=== PATIENT | female | born 2000 | race Caucasian/White ===

== ENCOUNTER 2022-04-10 15:37 | Outpatient (CLI) | payer BC, SELFPAY ==
[2022-04-10 18:29] LABS: Hepatitis B Surface Antigen* Negative (Negative)
[2022-04-10 18:38] LABS: HIV 1/2/P24 Combo Screen* Negative (Negative)
[2022-04-10 18:47] LABS: Hepatitis C Virus Antibody* Negative (Negative)
[2022-04-12 18:50] LABS: Rapid Plasma Reagin (RPR) Non Reactive (Non Reactive)
[2022-04-12 23:35] LABS: Rubella Antibody IgG 45.2 IU/mL
== END 2022-04-10 15:38 | disposition home or self-care (01) ==
LOC: NFLDREF 15:39
PROVIDERS: Visit Provider Physician Assistant
DX: Z34.91 Encounter for supervision of normal pregnancy, unspecified, first trimester (principal); Z3A.08 8 weeks gestation of pregnancy
CPT/HCPCS: 76817; 86592; 86703; 86762; 86787; 86803; 86850; 86900; 86901; 87086; 87340; 87491; 87591

== ENCOUNTER 2022-04-30 12:45 | Outpatient (CLI) | payer BC, SELFPAY ==
--- NOTE | 2022-04-30 13:00 | CRLHL7_ITS ---
For Patients: As a result of the Century Cures Act, medical imaging exams and procedure reports are released immediately into your electronic medical record. You may view this report before your referring provider. If you have questions, please contact your health care provider. CLINICAL HISTORY: First trimester screening. TECHNIQUE: Real time loza scale imaging of the fetus was performed using a transabdominal approach. FINDINGS: Sonographic imaging demonstrates a single living intrauterine gestation. The fetus demonstrates a regular cardiac rate measuring 173 beats per minute. The crown rump length measurement of 5.3 cm corresponds to a gestation of 12 weeks 0 days which is concordant with the earlier dating ultrasound. A nuchal translucency measurement of 1.5 mm was obtained for screening purposes. IMPRESSION: Nuchal translucency measurement obtained for first trimester screen. Dictated by Manuel Du MD @ 05/01/2022 9:40:02 AM (Electronically Signed)
== END 2022-04-30 12:46 | disposition home or self-care (01) ==
LOC: US 12:45
PROVIDERS: Visit Provider Physician Assistant
DX: Z34.91 Encounter for supervision of normal pregnancy, unspecified, first trimester (principal)
CPT/HCPCS: 36415; 76801; 76813; 84163; 84702

== ENCOUNTER 2022-06-25 11:00 | Outpatient (CLI) | payer BC, SELFPAY ==
--- NOTE | 2022-06-25 11:00 | CRLHL7_ITS ---
For Patients: As a result of the Century Cures Act, medical imaging exams and procedure reports are released immediately into your electronic medical record. You may view this report before your referring provider. If you have questions, please contact your health care provider. INDICATION: Evaluate anatomy. COMPARISON: 04/10/2022. TECHNIQUE: Real time loza scale imaging of the fetus was performed. FINDINGS: Sonographic imaging demonstrates a single living intrauterine gestation. Fetus demonstrates a regular cardiac rate of 148 beats per minute. Fetus has a breech orientation and longitudinal lie. The placenta lies posteriorly without evidence of placenta previa. Amniotic fluid volume appears normal. Single deepest vertical pocket: 3.6 cm. The cervix is closed and measures 4.9 cm in length. The composite ultrasound gestational age is calculated at 20 weeks 2 days with an estimated sonographic due date of November 10, 2022. The estimated weight is 338 grams which lies at the 66th percentile. The following biometric measurements were obtained: Biparietal diameter: 4.4 cm/19 weeks 3 days 31% Head circumference: 17.7 cm/20 weeks 1 day 56% Abdominal circumference: 15.3 cm/20 weeks 3 days 65% Femur length: 3.2 cm/20 weeks 0 days 47% The HC/AC ratio measures: 1.16 range (1.07-1.25) On anatomic survey, there is a normal appearance of the cerebral ventricles, cisterna magna and cerebellum. The nose, lips, and facial profile appear normal. The cervical, thoracic and lumbar spine are well visualized and appear normal. There is a normal four-chamber heart view and the left and right ventricular outflow tracts appear normal. diaphragm, stomach, kidneys and bladder appear normal. There is a normal three-vessel cord and cord insertion site. The four extremities appear normal. Appropriate growth and maturation when compared to April 10, 2022. IMPRESSION: Normal OB ultrasound exam with concordance of clinical and sonographic dating. No intrinsic abnormalities noted on anatomic survey. Dictated by Adriel Mckeon MD @ 06/25/2022 3:51:42 PM (Electronically Signed)
== END 2022-06-25 11:01 | disposition home or self-care (01) ==
PROVIDERS: Visit Provider Advanced Practice Midwife
DX: Z34.92 Encounter for supervision of normal pregnancy, unspecified, second trimester (principal); Z3A.19 19 weeks gestation of pregnancy
CPT/HCPCS: 76805

== ENCOUNTER 2022-08-04 16:39 | Outpatient (CLI) | payer BC, SELFPAY ==
[2022-08-04 16:48] VITALS: PULSE 92; O2SAT 100
[2022-08-04 16:53] VITALS: PULSE 97; O2SAT 97
[2022-08-04 16:58] VITALS: BP 128/87; PULSE 93; RESP 16; TEMP 36.9; O2SAT 100
--- NOTE | 2022-08-04 18:13 | PC.OBNST ---
NST Note NST Note Start: 08/04/22 16:46 Freq: ONCE Status: Discharge Protocol: Document 08/04/22 17:27 CUDDYH (Rec: 08/04/22 17:33 CUDDY [id number]) NST Note 1 Para (# of births) 0 EDC 11/13/22 Gestational Age In Weeks & Days 25 Weeks & 4 Days Patient Presented with Complaint(s) of Decreased movement Reactive Yes Appropriate for Gestational Age Yes RN Cesia Alvarado RN Date 08/04/22 Reactive Yes Appropriate for Gestational Age Yes RN Yury Mora RN Date 08/04/22 OB NST charge Yes Complete NST Note via Write Note Yes The provider's electronic signature indicates the NST is reactive/appropriate for gestational age. *Note to provider: If an addendum is required, open the patient's chart and click on the note under the Nurse/Allied Health tab.
== END 2022-08-04 17:27 | disposition home or self-care (01) ==
LOC: OB OUT 16:40 → OB 16:44
PROVIDERS: Visit Provider Advanced Practice Midwife
DX: O36.8120 Decreased fetal movements, second trimester, not applicable or unspecified (principal); Z3A.25 25 weeks gestation of pregnancy
CPT/HCPCS: 59025; 99213

== ENCOUNTER 2022-08-20 13:29 | Outpatient (CLI) | payer BC, SELFPAY ==
[2022-08-23 00:54] LABS: Rapid Plasma Reagin (RPR) Non Reactive (Non Reactive)
== END 2022-08-20 13:30 | disposition home or self-care (01) ==
PROVIDERS: Visit Provider Advanced Practice Midwife
DX: Z34.90 Encounter for supervision of normal pregnancy, unspecified, unspecified trimester (principal)
CPT/HCPCS: 86592

== ENCOUNTER 2022-09-17 12:50 | Outpatient (CLI) | payer OTHER, SELFPAY ==
--- NOTE | 2022-09-17 13:00 | CRLHL7_ITS ---
For Patients: As a result of the Century Cures Act, medical imaging exams and procedure reports are released immediately into your electronic medical record. You may view this report before your referring provider. If you have questions, please contact your health care provider. INDICATION: COVID IN COMPARISON: 06/25/2022 TECHNIQUE: Real time loza scale imaging of the fetus was performed as well as color Doppler and spectral Doppler analysis of the umbilical artery. FINDINGS: Sonographic imaging demonstrates a single living intrauterine gestation. Fetus demonstrates a regular cardiac rate of 141 beats per minute. Fetus has a vertex position. The placenta lies posteriorly. Amniotic fluid volume appears normal and there is a single deepest vertical pocket: 4.2 cm. The estimated weight is 1895gm which lies at the 45th %. On the prior OB ultrasound exam dated 06/25/2022 the estimated weight was at the 66th%. BPD 62nd percentile. HC 83rd percentile. HC 44th percentile. FL 32nd percentile. The HC/AC ratio measures 1.12 range (0.96-1.12). IMPRESSION: Sonographic gestational age 32 weeks 5 days and sonographic due date 11/07/2022. Sonographic age is 6 days ahead of the clinical age. Estimated weight 45th percentile. Abdominal circumference 44th percentile. Dictated by Manuel Du MD @ 09/18/2022 10:35:26 AM (Electronically Signed)
== END 2022-09-17 12:51 | disposition home or self-care (01) ==
LOC: US 12:54
PROVIDERS: Visit Provider Advanced Practice Midwife
DX: O98.513 Other viral diseases complicating pregnancy, third trimester (principal); U07.1 COVID-19; Z3A.32 32 weeks gestation of pregnancy
CPT/HCPCS: 76816

== ENCOUNTER 2022-10-15 13:16 | Outpatient (CLI) | payer OTHER, SELFPAY ==
--- NOTE | 2022-10-15 13:00 | CRLHL7_ITS ---
For Patients: As a result of the 21st Century Cures Act, medical imaging exams and procedure reports are released immediately into your electronic medical record. You may view this report before your referring provider. If you have questions, please contact your health care provider. INDICATION: Third trimester scan, evaluate growth. COVID-19 viral infection in . COMPARISON: September 17, 2022. TECHNIQUE: Real time loza scale imaging of the fetus was performed transabdominally. FINDINGS: Sonographic imaging demonstrates a single living intrauterine gestation. Fetus demonstrates a regular cardiac rate of 146 beats per minute. Fetus has a vertex orientation and longitudinal lie. The placenta lies posteriorly without evidence of placenta previa. Amniotic fluid volume appears normal with a single deepest vertical pocket measurement of 6.4 cm. The composite ultrasound gestational age is calculated at 36 weeks 5 days. The estimated weight is 3022 which lies at the 75th percentile. The biometric indices all lie within normal range. The HC/AC ratio measures 1.0 range (0.92-1.06). The FL/AC ratio measures 20.93 (20.0-24.0). Biometric indices are as follows: Biparietal diameter 9.0 cm, 36 weeks 2 days, 69th percentile. Head circumference 33.2 cm, 37 weeks 6 days, 68th percentile. Abdominal circumference 33.2 cm, 37 weeks 1 day, 89th percentile. Femur length 7.0 cm, 35 weeks 5 days, 40th percentile. The estimated due date is November 07, 2022. IMPRESSION: Single living intrauterine in vertex presentation. Composite calculated ultrasound age 36 weeks 5 days. Estimated weight lies at the 75th percentile. Appropriate growth and maturation in the interval. Dictated by Adriel Mckeon MD @ 10/15/2022 3:48:30 PM (Electronically Signed)
== END 2022-10-15 13:17 | disposition home or self-care (01) ==
LOC: US 13:17
PROVIDERS: Visit Provider Advanced Practice Midwife
DX: O98.513 Other viral diseases complicating pregnancy, third trimester (principal); U07.1 COVID-19; Z3A.36 36 weeks gestation of pregnancy
CPT/HCPCS: 76816; 87081; 87653

== ENCOUNTER 2022-11-07 20:29 | Inpatient (IN) | payer OTHER, SELFPAY ==
[2022-11-07] VITALS (9 sets, daily range): BP systolic 126–138; BP diastolic 73–99; PULSE 83–109; RESP 16–18; TEMP 36.4–36.6; BMI 37.7
[2022-11-07 20:09] LABS: Amnisure Rom* POSITIVE
--- NOTE | 2022-11-07 21:24 | P.LDBA_ITS ---
Documented by User: Kevin Wheat 11/07/22 22:12 Subjective History of Present Illness Date Seen: 11/07/22 Narrative: Francis Han) is being admitted to Labor and Delivery for SROM this evening at 1830. She has been leaking clear fluid since that time. She is a 22 year old at 39.1 weeks gestation. Her full history and physical was dictated by H&P done 10/22/2022 by CESAR Li Please see this for details. OB Problem list: 1. 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 Asthma Daily steroid inhaler, rare albuterol use 3. Tree nut allergy, carries EpiPen 4. History of depression. Responded well to Lexapro. Doing well off Lexapro since the spring 5. Covid positive s/s 08/13, positive on 08/15, out of quarantine 08/22/21 Growth u/s: Comments: Since admission she has had elevated diastolic blood pressures running in the 90's. OB - Problem Based A/P Additional Plan (1) 39 weeks gestation of : Status: Acute (2) Pain during labor: Status: Acute (3) Elevated blood pressure reading without diagnosis of hypertension: Status: Acute Plan ASSESSMENT:? 22 yo at 39.1 weeks gestation? complicated by:? Labor type: Spontaneous, Early labor? Category 1 FHR pattern.?? Labor complicated by: elevated blood pressures without diagnosis of HTN? GBS negative? ? PLAN:? 1. Routine intrapartum cares as ordered. Continue with expectant management, reevaluate plan if no labor in approximately 12 hours 2. Monitoring per policy, continuous with elevated blood pressures 3. Hourly BP checks. May decrease BP checks to every 4 hours if she has 4 consecutive hours of blood pressures less than 140/90 3. Planning no specific pain management, would like to be reminded of her options as labor progresses. Candidate for analgesia of choice.?? 4. Patient encouraged to reposition and ambulate to promote physiologic labor and and alternate with periods of rest. 5. Anticipate ? Delivery/Labor/Induction Plan Plan: expectant management OB Exam Physical Exam Vital signs: Temp Pulse Resp BP 97.8 F 98 18 138/99 H 11/07/22 20:50 11/07/22 21:06 11/07/22 20:50 11/07/22 21:06 Narrative: Vitals Reviewed Constitutional:? Alert and oriented x3 HEENT:? Normocephalic, atraumatic Neck:? Supple Lungs:? Clear to auscultation bilaterally Heart:? Regular rate and rhythm, no murmur, rub or gallop Abdomen:? Soft, nontender, and gravid. Vertex by Tejas's, confirmed with cervical exam. Extremities:? No edema or erythema Cervix: 2 cm/75%/-2 station/vertex per RN NST: 145 bpm/moderate variability/+accelerations/-decelerations/irregular contractions Detailed Labor and Delivery Exam Patient Gravid: Yes Dilation (cm): 2 Effacement (%): 75 Contraction Frequency: irregular Tachysystole: No Contraction intensity: Mild Fetus (Single) Station: -2 Amniotic Membrane Status: SROM Amniotic Membrane Fluid Description: Clear Heart Rate Baseline: 145 Monitor Accelerations: Present Monitor Decelerations: None Detention Variability: Moderate (6-25) Documented by User: Linda Baker CNM 11/07/22 22:12 Subjective History of Present Illness Narrative: Francis Han) is being admitted to Labor and Delivery for SROM this evening at 1830. She has been leaking clear fluid since that time. She is a 22 year old at 39.1 weeks gestation. Her full history and physical was dictated by H&P done 10/22/2022 by CESAR Li. Please see this for details. OB Problem list: 1. 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 Asthma Daily steroid inhaler, rare albuterol use 3. Tree nut allergy, carries EpiPen 4. History of depression. Responded well to Lexapro. Doing well off Lexapro since the spring 5. Covid positive s/s 08/13, positive on 08/15, out of quarantine 08/22/21 Growth u/s: -32 wk: 45%ile -36 wk: 75% OB - Problem Based A/P Additional Plan (1) 39 weeks gestation of : Status: Acute (2) Pain during labor: Status: Acute (3) Elevated blood pressure reading without diagnosis of hypertension: Status: Acute Plan ASSESSMENT:? 22 yo at 39.1 weeks gestation? complicated by:?Anxiety, Hx of COVID Labor type: Spontaneous, Early labor? Category 1 FHR pattern.?? Labor complicated by: elevated blood pressures without diagnosis of HTN? GBS negative? ? PLAN:? 1. Routine intrapartum cares as ordered. Continue with expectant management, reevaluate plan if no labor in approximately 12 hours 2. Monitoring per policy, continuous with elevated blood pressures 3. Hourly BP checks. May decrease BP checks to every 4 hours if she has 4 consecutive hours of blood pressures less than 140/90 3. Planning no specific pain management, would like to be reminded of her options as labor progresses. Candidate for analgesia of choice.?? 4. Patient encouraged to reposition and ambulate to promote physiologic labor and and alternate with periods of rest. 5. Anticipate ? DEENA Kahn with supervision by Linda Baker CNM
[2022-11-07 21:33] LABS: SARS PCR* Negative SARS-CoV-2 (Negative)
[2022-11-08] VITALS (92 sets, daily range): BP systolic 108–187; BP diastolic 55–92; PULSE 74–125; RESP 16–20; TEMP 36.3–37.1; O2SAT 94–100
[2022-11-08] MEDS: MORPHINE 10 MG/ML inj IM (01:58)
[2022-11-08] MEDS: hydrOXYzine pamoate 25 MG CAPSULE 100 MG PO (01:59)
--- NOTE | 2022-11-08 08:19 | PM.OBPNL ---
Documented by User: Kevin Wheat 11/08/22 08:51 Subjective Date Seen: 11/08/22 Narrative: Jaz is sitting up in bed eating breakfast this morning. Her mother and partner are present as support. She denies regular contractions this morning, continues to leak clear fluid and reports bloody show when up to the bathroom. Overnight her blood pressures have all been lower than 140/90 since initial admission pressures were elevated, see nurse documentation. Objective Exam: Objective:?? Constitutional: Alert and oriented x3, not in distress, coping well? Vital signs stable, see nurse documentation?? Abdomen: gravid, contractions palpate mild with contractions and soft between Edema: +1 edema lower extremities Vital Signs: Last Vital Signs Temp 97.6 F 11/08/22 07:19 Pulse 86 11/08/22 07:19 Resp 16 11/08/22 07:19 BP 135/80 11/08/22 07:19 Contractions Monitor mode: Palpation Contraction Frequency: pt reports every 30 minutes Contraction pattern: Irregular Contraction intensity: Mild Assessment Assessment: early labor Station: -2 Amniotic Membrane Status: SROM Heart Rate Baseline: 145 Monitor Accelerations: Present Monitor Decelerations: None Tracing Comments: intermittant monitoring Plan Plan: ASSESSMENT:? 22yo at 39.2 weeks gestation? complicated by:?Anxiety and Covid during Labor type: Spontaneous, Early labor? Intermittent monitoring ? Labor complicated by: PROM, elevated blood pressures without dx of HTN on admission GBS negative? ? PLAN:? 1. Routine intrapartum cares as ordered. Continue with expectant management? 2. Monitoring per policy, intermittent? 3. Planning low intervention , open to pain management options. Candidate for analgesia of choice.?? 4. Patient encouraged pumping, nipple stimulation,repositioning and ambulation to promote physiologic labor and . 5. Blood pressure monitoring every 4 hours unless elevated > 140/90 then monitor hourly. 6. Anticipate Documented by User: Linda Baker CNM 11/08/22 08:50 Subjective Narrative: Jaz is sitting up in bed eating breakfast this morning. Her mother and partner are present as support. She denies regular contractions this morning, continues to leak clear fluid and reports bloody show when up to the bathroom. Overnight her blood pressures have all been normotensive since initial admission pressures were elevated, see nurse documentation. Plan Plan: ASSESSMENT:? 22yo at 39.2 weeks gestation? complicated by:?Anxiety and Covid during Labor type: Spontaneous, Early labor? Intermittent monitoring ? Labor complicated by: PROM, elevated blood pressures without dx of HTN on admission GBS negative? ? PLAN:? 1. Routine intrapartum cares as ordered. Continue with expectant management, discussed reevaluating around lunch to discuss alternative plan. 2. Monitoring per policy, intermittent? 3. Planning low intervention , open to pain management options. Candidate for analgesia of choice.?? 4. Patient encouraged pumping, nipple stimulation,repositioning and ambulation to promote physiologic labor and . 5. Blood pressure monitoring every 4 hours unless elevated > 140/90 then monitor hourly. 6. Anticipate
--- NOTE | 2022-11-08 12:12 | PM.OBPNL ---
Subjective Date Seen: 11/08/22 Narrative: Jaz is a 22yo her with PROM since 11/07/22 at 1830. Fluid continues to be clear, she reports some bloody show when up to the bathroom. She has not noticed an increase in her contractions in the last 4 hours. She does report some contractions are stronger but are still infrequent. Objective Exam: Objective:?? Constitutional: Alert and oriented x3, is not in distress, coping well? Vital signs stable, see nurse documentation?? Abdomen: gravid, contractions palpate mild with contractions and soft between Vital Signs: Last Vital Signs Temp 98.1 F 11/08/22 10:22 Pulse 92 11/08/22 10:22 Resp 16 11/08/22 10:22 BP 136/83 11/08/22 10:22 Pelvic Exam Dilation (cm): 2 Effacement (%): 75 Station: -2 Contractions Monitor mode: Palpation Contraction Frequency: rare Contraction pattern: Irregular Contraction intensity: Mild Assessment Assessment: other (PROM) Station: -2 Amniotic Membrane Status: SROM Heart Rate Baseline: 145 Monitor Accelerations: Present Monitor Decelerations: None Tracing Comments: intermittant monitoring Plan Plan: ASSESSMENT:? 22yo at 39.2 weeks gestation? complicated by: anxiety and covid infection during Labor type: Spontaneous, Early labor? Intermittent monitoring?? Labor complicated by: PROM? GBS negative? ? PLAN:? 1. Routine intrapartum cares as ordered. Augment with IV Pitocin.? 2. Monitoring per policy, continuous with Pitocin? 3. Candidate for analgesia of choice.?? 4. Patient encouraged to reposition and ambulate to promote physiologic labor and .? 5. Limit cervical exams 6. Anticipate
[2022-11-08] MEDS: LACTATED RINGERS 1000 ML 1,000 ML 125 ML IV ×2 (12:41→18:39)
[2022-11-08] MEDS: OXYTOCIN 30 unit/500 ML in NS 30 UNIT/500 ML BAG IVPB (12:42)
[2022-11-08] MEDS: ROPIVACAINE 0.2% 100 ml 100 ML 12 MG EPIDURAL (16:05)
--- NOTE | 2022-11-08 16:29 | PM.ANBPRC ---
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 - Personal history of other specified (corrected) congenital malformations of genitourinary system (ICD-10) Seasonal allergies ?J30.2 - Other seasonal allergic rhinitis (ICD-10) Tree nut allergy ?Z91.018 - Allergy to other foods (ICD-10) Social History Smoking Status: Never smoker Little interest or pleasure in doing things: not at all Feeling down, depressed, or hopeless: several days Meds Home Medications and Allergies Home Medications Medication Instructions Recorded Confirmed Type docosahexaenoic acid 200 mg 200 mg PO DAILY 04/10/22 11/07/22 History capsule ( DHA) acetaminophen 500 mg capsule 1,000 mg PO Q6H PRN 05/28/22 11/07/22 History albuterol sulfate 90 mcg/actuation 1 inh inhalation Q4-6H PRN 06/25/22 11/07/22 History breath activated powder inhaler beclomethasone dipropionate 40 1 inh inhalation QHS 09/04/22 11/07/22 History mcg/actuation HFA breath activated aerosol (Qvar RediHaler) cetirizine 10 mg capsule (Zyrtec) 10 mg PO QHS 09/04/22 11/07/22 History Allergies Allergy/AdvReac Type Severity Reaction Status Date / Time tree nut Allergy Severe Anaphylaxis Verified 11/05/22 12:54 Results Labs Labs: Laboratory Results - last 24 hr 11/07/22 11/07/22 19:59 20:53 Membrane Rupture POSITIVE SARS-CoV-2 (PCR) Negative SARS-CoV-2 Vital Signs Vital Signs: Last Vital Signs Temp 97.8 F 11/08/22 14:39 Pulse 74 11/08/22 16:24 Resp 16 11/08/22 14:39 BP 118/70 11/08/22 16:24 Pulse Ox 97 11/08/22 16:28 Weight: 105.914 kg Height: 167.64 cm Anesthesia Procedures Epidural Insertion Patient Location: OB Start Time: 15:45 Stop Time: 16:45 Start Date: 11/08/22 Stop Date: 11/08/22 Reason for Block: procedure for pain Patient Position: sitting Performed By: Tyler Dela Cruz Preanesthetic Checklist: IV checked, risks and benefits discussed, surgical consent, monitors and equipment checked, pre-op evaluation, timeout performed and anesthesia consent Prep: chlorhexidine gluconate Monitoring: blood pressure monitoring, continuous pulse oximetry and heart rate Approach: midline Vertebral Space: lumbar (1-5) Epidural Technique: CAPRICE saline Needle Type: Tuohy needle Injection Technique: continuous catheter Needle gauge: 17 Needle Length (cm): 10 cm Needle Insertion Depth (cm): 6 Catheter Gauge: 19 Catheter Type: multi-orifice Catheter at skin depth (cm): 12 Test Dose Result: negative and lidocaine 1.5% with epinephrine 1 to 200,000
[2022-11-08] MEDS: LIDOCAINE 1 % PF 30 ML INJECTION (23:30)
--- NOTE | 2022-11-08 23:56 | W.PM.OBVAGDE ---
Documented by User: Kevin Wheat 11/09/22 00:32 OB Procedure Vag Delivery Mother Details Mother Details: Jaz is a 22 year-old, 1, Para 1, admitted on 11/07/22 at 39.2Days gestation with SROM. Her contractions did not increase in frequency or intensity after 18 hours despite her efforts of position changes, activity, pumping and nipple stimulation. She elected to have her labor augmented with Pitocin, she received an epidural for pain management. : 1 Para: 1 Weeks Gestation: 39.2 Admission Date: 11/07/22 Additional Details Amniotic Membrane Status: SROM Amniotic Membrane Rupture Date: 11/07/22 Amniotic Membrane Rupture Time: 18:30 Amniotic Membrane Fluid Description: Clear Analgesia/Anesthesia Type: Epidural Waterbirth: No Pitcoin: Yes Intrapartal Events: Labor Augmentation Delivery augmentation: pitocin Labor Onset: 12:42 Complete: 21:47 Pushin:56 Heart: heart tones during second stage were reassuring throughout, initially had early decelerations none noted in the later stage of pushing. Moderate variability with accelerations. Delivery Details Delivery Date: 11/08/22 Delivery Time: 22:41 Route of delivery: Gender: Female Infant Viability: Alive; Heart Rate Present Position at Delivery: OA Delivery Details: Patient was complete at 2147 and pushing at 2156. of a viable female at 2241 in left tilt. Vertex delivered OA. No nuchal cord or shoulder. Body delivered easily and without incident. Infant passed to mothers abdomen with a vigorous cry. Cord was clamped and cut at > 5 minutes. APGARS were 6 at one minute and 9 at five minutes respectively. Mouth was bulb suctioned. Intact placenta with a 3 vessel cord delivered spontaneously at 2257. Fundus firm. 1st degree tear with bilateral labial extensions identified and repaired in typical fashion. Noted trickle of bleeding during repair, fundus was firm but off to right. Bladder emptied and uterine massage with expression of a clot and trickling improved. QBL 200 cc. Mother and baby stable; mother plans to breastfeed. weight pending. 1 Minute Interval Total Score: 6 5 Minute Interval Total Score: 9 Additional Details Shoulder Dystocia: No Placenta Delivery Time: 22:57 Placental Delivery Description: Spontaneous Delivery repair: Vicryl Procedure Done: Global Blood Loss: 200 Laceration: Perineal - 1st Degree (bilateral labial extensions) Blood Loss Measurement Type: QBL Bakri Used: No Sponge/Need Count Correct: Yes Cord Vessel Description: 3 Vessels Event Summary Status: Mother and infant were stable after delivery. Disposition: floor Documented by User: Linda Baker CNM 11/09/22 00:34 OB Procedure Vag Delivery Additional Details Delivery repair: Vicryl (3-0)
[2022-11-09] VITALS (16 sets, daily range): BP systolic 103–137; BP diastolic 64–89; PULSE 66–107; RESP 16–18; TEMP 36.4–36.7; O2SAT 92–98
[2022-11-09] MEDS: IBUPROFEN 600 MG TABLET PO ×3 (02:14→19:40)
--- NOTE | 2022-11-09 08:38 | PM.OBPNVD1 ---
Documented by User: Kevin Wheat 11/09/22 08:45 OB - PN:Subj Subjective Date Seen: 11/09/22 Interval history: Jaz is a 22yo who delivered vaginally on 11/08/22. Patient comments OB post-: pain well controlled and perineal pain Narrative: The patient feels well.? The pain is well controlled with current medications.? She has no new complaints.? Urinary output is adequate and she is voiding without difficulty.? Has a good appetite, is tolerating a general diet, is passing flatus, and has no yet had a bowel movement.? Has small amount of rubra lochia.? She is ambulating well. She is and reports it is going well. OB - PN: Obj Exam Physical Exam: Vital signs: Temp Pulse Resp BP Pulse Ox O2 Del Method 98.1 F 79 18 103/70 96 Room Air 11/09/22 04:45 11/09/22 04:45 11/09/22 04:45 11/09/22 04:45 11/09/22 04:45 11/09/22 04:45 Narrative: GENERAL APPEARANCE:? normal affect, alert, no distress? MOOD:? appropriate? CHEST:? clear to auscultation? HEART:? regular rate and rhythm? ABDOMEN:? soft, non-tender the uterine fundus is firm At Umbilicus, Right tilted and is appropriate for the stage of recovery.? PERINEUM:? mild edema of the perineum, there is a Perineal Laceration,? 1st degree that is healing well.? EXTREMITIES:? normal and +2 edema? OB - PN: A/P Vaginal Delivery Assessment and Plan (1) care and examination immediately after delivery: Status: Acute (2) Lactating mother: Status: Acute Plan day: 1 Plan: routine care Comments: may see if desired. Documented by User: Linda Baker CNM 11/09/22 09:16 OB - PN: A/P Vaginal Delivery Assessment and Plan (1) care and examination immediately after delivery: Status: Acute (2) Lactating mother: Status: Acute Plan Comments: may see if desired. Anticipate discharge tomorrow, 11/10.
[2022-11-09] MEDS: ACETAMINOPHEN 500 MG TABLET 1000 MG PO ×2 (08:42→15:06)
[2022-11-09] MEDS: DOCUSATE SODIUM 100 MG CAPSULE PO (08:43)
[2022-11-10 00:55] VITALS: BP 112/81; PULSE 83; RESP 16; TEMP 36.4; O2SAT 96
[2022-11-10] MEDS: ACETAMINOPHEN 500 MG TABLET 1000 MG PO ×2 (01:33→09:34)
[2022-11-10] MEDS: IBUPROFEN 600 MG TABLET PO ×2 (03:54→14:31)
--- NOTE | 2022-11-10 07:40 | PM.OBDSVD1 ---
DS: Providers Provider Date Seen: 11/10/22 Date of admission: 11/07/22 20:29 Primary care physician: Not a Local Provider Admitting Clinician: Linda Baker CNM Attending Physician on discharge: Kevin SHAFFER supervised by Parisa Peres CNM Date of Discharge: 11/10/22 DS: Diagnosis Discharge Diagnosis (1) care and examination immediately after delivery: Status: Acute (2) Lactating mother: Status: Acute Exam Narrative: Exam Narrative: GENERAL APPEARANCE:? normal affect, alert, no distress? MOOD:? appropriate? CHEST:? clear to auscultation? HEART:? regular rate and rhythm? ABDOMEN:? soft, non-tender the uterine fundus is firm At Umbilicus, Midline and is appropriate for the stage of recovery.? PERINEUM:? mild edema of the perineum, there is a Perineal Laceration,? 1st degree that is healing well.? EXTREMITIES:? normal and 1+ edema? Const: Vital Signs, click to edit/add: Vital Signs - 24 hr 11/09/22 08:15 11/09/22 12:30 11/09/22 15:00 Temperature 98.0 F 98.1 F 98.1 F Pulse Rate [Blood Pressure Cuff] 66 100 92 Respiratory Rate 16 16 16 Blood Pressure [Ri ght Arm] 115/82 110/81 126/80 Pulse Oximetry 98 96 92 Oxygen Delivery Me thod Room Air Room Air Room Air 11/09/22 20:43 11/10/22 00:55 Temperature 97.6 F 97.6 F Pulse Rate [Blood Pressure Cuff] 83 83 Respiratory Rate 16 16 Blood Pressure [Ri ght Arm] 130/89 112/81 Pulse Oximetry 96 96 Oxygen Delivery Me thod Room Air Room Air Documenting provider has reviewed patient's vital signs: yes OB - DS: Summary Hospital Course Hospital Course: Jaz is a 22 year old G 1 P 1 at 39.2 weeks gestation that was admitted to the Center on 11/07/22 for SROM. She had an uncomplicated vaginal delivery with Pitocin augmentation. She delivered a viable female . She is breast feeding. the patient has done well. The patient feels well.? The pain is well controlled with current medications.? She has no new complaints.? Urinary output is adequate and she is voiding without difficulty.? Has a good appetite, is tolerating a general diet, is passing flatus, and has had a bowel movement.? Has small amount of rubra lochia.? She is ambulating well. She is and reports it is going well. Peripartum Data Infant delivery method: Vaginal Laceration description: Perineal - 1st Degree (with bilateral labial extensions) complications: none Infant Gender: Female Discharge Plan: Home Status at Discharge Functional status at discharge: independent ambulation Overall status at discharge: patient is progressing back to baseline Time Spent with Patient Time attestation: Total time spent providing and/or coordinating discharge services: Time spent: Less than 30 minutes Discharge Plan Discharge Disposition: Home, Self-Care Date of Admission: 11/07/22 20:29 Attending Provider on Discharge: Parisa Peres Primary Care Provider: Provider,Not a Local Condition: Stable Anticipated Discharge Date/Time: 11/10/22 12:00 Discharge Medications: New acetaminophen 500 mg Tablet 1,000 mg PO Q6H PRNQty: 0 0RF docusate sodium 100 mg Capsule 100 mg PO DAILY Qty: 90 1RF ibuprofen 600 mg Tablet 600 mg PO Q6H PRNQty: 60 0RF Continued acetaminophen 500 mg capsule 1,000 mg PO Q6H PRN DHA 200 mg capsule 200 mg PO DAILY Qvar RediHaler 40 mcg/actuation HFA aerosol breath activated 1 inh inhalation QHS Zyrtec 10 mg capsule 10 mg PO QHS albuterol sulfate 90 mcg/actuation aerosol powdr breath activated 1 inh inhalation Q4-6H PRN Discharge Orders: Discharge Order (Routine); Ordered 11/10/22 Ordered By: Parisa Peres Patient Education: OB Over the Counter Medication Information, OB Vaginal/Breast Feeding Additional Instructions: Discharge instructions were reviewed with the patient including signs and symptoms of infection and home going medications Nothing vaginally for 6 weeks: no tampons or intercourse Off Work or School for 6 weeks 2-week visit: discuss feeding concerns, review control options and screen for anxiety/depression. 6-week visit for an annual exam. consultation services are available to all mothers and babies for the first year after delivery.? To make an appointment, please call [phone]. Activity Level: Activity as Tolerated Discharge Diet: Regular Follow Up Appointments: [facility] [Provider Group] Forms: MyHealth Info Instructions
[2022-11-10 09:10] VITALS: BP 118/91; PULSE 90; RESP 16; TEMP 36.4; O2SAT 96
[2022-11-10] MEDS: DOCUSATE SODIUM 100 MG CAPSULE PO (09:34)
== END 2022-11-10 15:30 | disposition home or self-care (01) | DRG 807 ==
LOC: OB CLI 20:30 → OB 20:30
PROVIDERS: Admitting Provider Advanced Practice Midwife; Visit Provider Advanced Practice Midwife
DX: O42.02 Full-term premature rupture of membranes, onset of labor within 24 hours of rupture (principal); Z37.0 Single live birth; O70.0 First degree perineal laceration during delivery; Z3A.39 39 weeks gestation of pregnancy; F41.9 Anxiety disorder, unspecified; O99.344 Other mental disorders complicating childbirth; R03.0 Elevated blood-pressure reading, without diagnosis of hypertension
CPT/HCPCS: 01967; 84112; 87635; A9270; J2001; J2270; J2370; J2795; J7120; S0020

== ENCOUNTER 2023-07-15 14:27 | Outpatient (CLI) | payer OTHER, SELFPAY | END 2023-07-15 14:28 | disposition home or self-care (01) | PROVIDERS: PCP Family Medicine; Visit Provider Family Medicine | DX: R10.12 Left upper quadrant pain (principal) | CPT/HCPCS: 80053; 82150; 83690; 84443 ==

== ENCOUNTER 2024-06-24 15:35 | Outpatient (CLI) | payer OTHER, SELFPAY ==
--- OUTSIDE RECORDS SUMMARY | 2024-06-24 15:38 | XMS_ITS | Encounter Summary ---
Author Organization [email or web address] Address [address] [place] [address] Care Team Providers Care Braiding Operator Name Role Phone No Primary/Referring, Phy Primary Care Provider Unavailable Encounter Details Date Type Department Care Team (Latest Contact Info) Description 05/09/2024 Orders Only HIM DEPARTMENT Provider, [place] [address] Social History Tobacco Use Types Packs/Day Years Used Date Smoking Tobacco: Never Alcohol Use Standard Drinks/Week Comments No 0 (1 standard drink = 0.6 oz pur e alcohol) PHQ-2 Answer Date Recorded PHQ-2 Score 0 2024 Sex and Gender Information Value Date Recorded Sex Assigned at Not on file Gender Identity Not on file Sexual Orientation Not on file documented as of this encounter Plan of Treatment Not on file documented as of this encounter Procedures Procedure Name Priority Date/Time Associated Diagnosis Comments ULTRASOUND SC 05/09/2024 documented in this encounter Results * ULTRASOUND SC (05/09/2024) Anatomical Region Laterality Modality Other Interface Provider DUMMY/OTHER/AR documented in this encounter Visit Diagnoses Not on filedocumented in this encounter Care Teams Braiding Operator Relationship Specialty Start Date End Date No Primary/Referring, Phy PCP - General 04/21/24 documented as of this encounter
--- OUTSIDE RECORDS SUMMARY | 2024-06-24 15:38 | XMS_ITS | Encounter Summary ---
Author Organization [facility] Address [address] [address] Care Team Providers Care Cigarette Package Examiner Name Role Phone No Primary/Referring, Phy Primary Care Provider Unavailable Reason for Visit * Reason Comments ASTHMA Follow up- needing a refill Encounter Details Date Type Department Care Team ([facility] st Contact Info) Description 06/08/2024 4:00 PM CDT Office Visit [facility] [address] [place], [place] [address] [place] [id number] [place], [place] [id number] Mild persistent asthma without complication (HRC) Social History Tobacco Use Types Packs/Day Years [...] on file documented as of this encounter Last Filed Vital Signs Vital Sign Reading Time Taken Comments Blood Pressure 125/79 06/08/2024 3:57 PM CDT Pulse 97 06/08/2024 3:57 PM CDT Temperature - - Respiratory Rate - - Oxygen Saturation - - Inhaled Oxygen Concentration - - Weight 76.7 kg (169 lb) 06/08/2024 3:57 PM CDT Height - - Body Mass Index 27.06 2024 8:30 AM CDT documented in this encounter Progress Notes * Marianela Cardenas MD - 06/08/2024 4:00 PM CDT Historical: Chief Complaint Patient presents with ASTHMA Follow up- needing a refill Asthma Follow-Up Do you take any prescription medication for this condition? YES How many doses of medication have you missed in the past week? 0 Do you have medication side effect concerns? No What types of inhalers do you use? Rescue (Albuterol) and Controller (steroid controller or combination inhaler): How often do you use your controller inhaler? Once a day 06/08/2024 4:00 PM 12/03/2015 4:00 PM 03/06/2014 9:36 AM 06/27/2013 10:25 AM 06/23/2013 4:00 PM ASTHMA - ADULT CONTROL TEST In the past 4 wks, how much did your asthma keep you from getting things done? None of the time (5)4 3 4 2 During the last 4 wks, how often have you had SOB? Once or twice a week (4) 3 4 4 3 During the last 4 wks, how often did your asthma sx's wake you? Not at all (5) 5 4 5 3 During the last 4 wks, how often did you use your rescue inhaler or neb med? Not at all (5) 4 3 3 3 How would you rate your asthma control during the last 4 wks? Well Controlled (4) 4 3 3 2 ACT Total (20 or more is well-controlled) 23 20 17 19 13 # of ER Visits 0 0 0 1 0 # of Hosp Visits 0 0 0 0 0 Risk Assessment Total (less than 2 is well-controlled) 0 0 0 1 0 I have personally reviewed the patient's allergies, medications, past medical history, family history, social history, and rooming notes in detail and updated the patient record as necessary. Observed: BP 125/79 (BP Location: Right Arm, BP Cuff Size: Regular) Pulse 97 Wt 169 lb (76.7 kg) BMI 27.06 kg/m?? Physical Exam: General Appearance: alert, well appearing, and in no apparent distress Heart: regular rate and rhythm and no murmurs, gallops or rubs Lungs: clear to auscultation and no wheezes, rales or rhonchi Abdomen: soft, nondistended, nontender, no palpable masses, and no organomegaly Neurologic: normal speech, no facial droop, alert and oriented x 3, normal gait, and cranial nerves2 -12 intact Psychiatric: affect/mood normal, cooperative, normal judgement/insight, and memory intact Assessment/Plan: Francis was seen today for asthma. Diagnoses and all orders for this visit: Mild persistent asthma without complication (HRC)-WELL CONTROLLED - ALBUterol sulfate HFA (VENTOLIN HFA) 108 (90 Base) MCG/ACT inhaler; inhale 2 puffs before exercise when needed and every 4 hours if needed for wheezing or recurrent cough- fast acting - PULMICORT FLEXHALER 180 MCG/ACT inhaler; Inhale 1 Puff two times a day.Discussed that save in and -f/u at 12 month Please see orders and patient instructions Marianela Cardenas MD documented in this encounter Plan of Treatment Not on file documented as of this encounter Visit Diagnoses Diagnosis Mild persistent asthma without complication (HRC) Unspecified asthma documented in this encounter Care Teams Cigarette Package Examiner Relationship Specialty Start Date End Date No Primary/Referring, Phy PCP - General 04/21/24 documented as of this encounter
--- OUTSIDE RECORDS SUMMARY | 2024-06-24 15:38 | XMS_ITS | Encounter Summary ---
Author Organization [facility] Address [address] [address] Care Team Providers Care Glass Embosser Name Role Phone No Primary/Referring, Phy Primary Care Provider Unavailable Reason for Visit * Procedure/Equipment (Routine) - Incomplete Specialty Diagnoses / Procedures Referred By Noemy de la paz Referred To Contact Diagnoses Cough, unspecified type Procedures XR Chest 2 Views Jessie Cain PA-C [address] [place] [address] Referral ID Status Reason Start Date Expiration Date V isits Requested Visits Authorized [id number] Incomplete 05/04/2024 08/03/2025 1 1 Encounter Details Date Type Department Care Team (Late st Contact Info) Description 05/04/2024 2:55 PM CDT Ancillary Procedure [facility] [id number] [place] [id number] Jessie Cain PA-C [id number] [place] [address] Cough, unspecified type Social History Tobacco Use Types Packs/Day Years [...] Procedure Name Priority Date/Time Associated Diagnosis Comments XR CHEST 2 VIEWS STAT 05/04/2024 3:09 PM CDT Cough, unspecified type documented in this encounter Results * XR Chest 2 Views (05/04/2024 3:09 PM CDT) Anatomical Region Laterality Modality Chest, Lung Computed Radiogr aphy 05/04/2024 3:09 PM CDT Narrative 05/04/2024 3:17 PM CDT EXAM: XR CHEST 2 VIEWS LOCATION: [facility] DATE: 05/04/2024 INDICATION: Cough. Chest pain. COMPARISON: None. IMPRESSION: Negative chest. Procedure Note Germán Pelaez MD - 05/04/2024 EXAM: XR CHEST 2 VIEWS LOCATION: [facility] DATE: 05/04/2024 INDICATION: Cough. Chest pain. COMPARISON: None. IMPRESSION: Negative chest. Jessie Cain PA-C RAD [facility] documented in this encounter Visit Diagnoses Diagnosis Cough, unspecified type documented in this encounter Care Teams Glass Embosser Relationship Specialty Start Date End Date No Primary/Referring, Phy PCP - General 04/21/24 documented as of this encounter
--- OUTSIDE RECORDS SUMMARY | 2024-06-24 15:38 | XMS_ITS | Encounter Summary ---
Author Organization [facility] Address [address] [place] [address] Care Team Providers Care Dry Pan Operator Name Role Phone No Primary/Referring, Phy Primary Care Provider Unavailable Encounter Details Date Type Department Care Team (Latest Contact Info) Description 05/09/2024 Orders Only HIM DEPARTMENT Provider, [place] [address] Social History Tobacco Use Types Packs/Day Years [...] on filedocumented in this encounter Care Teams Dry Pan Operator Relationship Specialty Start Date End Date No Primary/Referring, Phy PCP - General 04/21/24 documented as of this encounter
--- OUTSIDE RECORDS SUMMARY | 2024-06-24 15:38 | XMS_ITS | Encounter Summary ---
Author Organization [employer] Address [address] [place] [address] Care Team Providers Care Boiler Technician Name Role Phone No Primary/Referring, Phy Primary Care Provider Unavailable Reason for Referral * Procedure/Equipment (Routine) - Incomplete Specialty Diagnoses / Procedures Referred By Noemy de la paz Referred To Contact Diagnoses Cough, unspecified type Procedures XR Chest 2 Views Jessie Cain PA-C [id number] [place] [id number] Referral ID Status Reason Start Date Expiration Date V isits Requested Visits Authorized [id number] Incomplete 05/04/2024 08/03/2025 1 1 Reason for Visit * Reason Comments COUGH Pt says last night a t 2am she had intense chest pain and coughing up mucus. Encounter Details Date Type Department Care Team (Late st Contact Info) Description 05/04/2024 2:45 PM CDT Office Visit [facility] [id number] [place] [id number] Jessie Cain PA-C [id number] [place] [phone] Asthma with acute exacerbation, unspecified asthma severity, unspecified whether persistent (HRC) (Primary Dx); Acute cough; Chest pain, unspecified type Social History Tobacco Use Types [...] Sign Reading Time Taken Comments Blood Pressure 129/82 05/04/2024 2:49 PM CDT Pulse 89 05/04/2024 2:49 PM CDT Temperature 36.9 ??C (98.4 ??F) 05/04/2024 2:49 PM CD T Respiratory Rate 16 05/04/2024 2:49 PM CDT Oxygen Saturation 99% 05/04/2024 2:49 PM CDT Inhaled Oxygen Concentration - - Weight 76.2 kg (168 lb) 05/04/2024 2:49 PM CDT Height - - Body Mass Index 26.9 2024 8:30 AM CDT documented in this encounter Patient Instructions * Patient Instructions* Jessie Cain PA-C - 05/04/2024 2:45 PM CDT Chest x-ray taken in clinic today shows no signs of pneumonia or other other structural causes to your symptoms. You are likely experiencing an acute asthma exacerbations secondary to recent viral upper respiratory infection or seasonal allergies. This can typically cause symptoms of cough, chest tightness, and shortness of breath. Treatment is to start you on a short burst of oral steroids (prednisone) and to continue your usually daily asthma treatments (daily Advair and albuterol as needed). It is also very reassuring that your EKG was normal and vitals have remained stable during your visit today. Additionally, the ability to reproduce your chest pain with touch makes it more likely theyour chest pain is consistent with soft tissue inflammation related to frequent coughing and asthmaexacerbations. However, it is very important that you continue to monitor yourself for new or worsening symptoms, including, but not limited to, new or worsening chest pain, chest pain that is worse with exertion or positioning, new or worsening shortness of breath, coughing up blood, new onset dizziness, or other symptoms that are concern. If this were to occur, go to the emergency room or call 911 for further evaluation and care. * Attachments The following attachments cannot be sent through Care Everywhere. * Chest Pain (Croatian) * Asthma Attack (Croatian) documented in this encounter Progress Notes * Jessie Cain PA-C - 05/04/2024 2:45 PM CDT Rooming Notes Francis Donahue is a 24 y.o.female presents to the Urgent Care for COUGH Symptoms began: 2 week(s) ago. Fever: absent. Other associated symptoms: None . Any recent close contact with an individual with a known similar illness (including COVID): yes: Daughter has had a cough. Current medications: cough suppressant of choice. Patient requests an excuse letter for work/school: No SUBJECTIVE Francis Donahue is a 24 y.o. female, PMH of allergic rhinitis and mild persistent asthma, who presentsto urgent care with complaint of cough, chest congestion, and chest tightness. Symptoms have been ongoing for the past 2 weeks and followed typical viral URI illness of runny nose, nasal congestion, and cough. Patient also notes developing a pressure like sensation across her anterior chest wall last night which has been constant since onset. Pain is worsened when she pulls her shoulders back which tends to pull the anterior chest wall outward and the tightness is agitated when taking deep breaths and coughing. Chest pain is not worse with activity. She denies any cardiac history or historyof similar symptoms. At-home treatments: Ibuprofen, Tylenol, daily Advair, and Albuterol inhaler prn with no significantimprovement in symptoms. Daughter had similar URI symptoms around onset as well. ROS Associated symptoms: See HPI. Denies fevers, chills, sinus pain or pressure, sore throat, dyspnea, wheezing, productive cough, abdominal pain, nausea, vomiting, diarrhea, rashes. All other pertinent systems reviewed and are negative. Medications: Current Outpatient Medications Medication Sig Dispense Refill ALBUterol sulfate HFA (VENTOLIN HFA) 108 (90 BASE) MCG/ACT inhaler inhale 2 puffs before exercise when needed and every 4 hours if needed for wheezing or recurrent cough- fast acting 18 g 1 ammonium lactate (LAC-HYDRIN) 12 % lotion SMARTSIG:Sparingly Topical azithromycin (ZITHROMAX Z-SONG) 250 MG tablet Take two tablets just once on Thursday , then start to take one tablet once a day for 4 more days for infection 6 Tab 0 cetirizine (AKA ZYRTEC) 10 MG tablet Take 1 Tablet (10 mg) by mouth daily. EPIPEN 0.3 MG/0.3ML injection Inject 0.3 mL intramuscularly once as needed for 1 dose. into thigh as directed for and/or potential for an allergic reaction (Patient not taking: Reported on 06/11/2016) 2 Each 1 fluticasone-salmeterol (ADVAIR DISKUS) 250-50 MCG/DOSE diskus inhaler Inhale 1 Puff two times a day. Rinse mouth/gargle after use. 60 Each 1 loratadine (CLARITIN) 10 MG tablet Take 1 Tab by mouth . once a day if needed for watery nose congestion or plugged ear feeling or itching 24 Tab 1 PULMICORT FLEXHALER 180 MCG/ACT inhaler Inhale 1 Puff daily. No current facility-administered medications for this visit. Allergies: Nuts Tobacco: Social History Tobacco Use Smoking Status Never Smokeless Tobacco Not on file OBJECTIVE Vitals: BP 129/82 (BP Location: Right Arm, BP Cuff Size: Regular) Pulse 89 Temp 98.4 ??F (36.9 ??C) (Tympanic) Resp 16 Wt 168 lb (76.2 kg) SpO2 99% BMI 26.90 kg/m?? General Appearance: well developed, well nourished, and in no acute distress Ears: R TM - WNL: pearly, johnson with good light reflex, L TM - WNL: pearly, johnson with good light reflex Nose and Sinuses: normal Throat: normal Neck: supple and no adenopathy Lungs: Breathing unlabored. Lungs are clear to auscultation without any wheezes, rales or rhonchi bilaterally. Patient in no acute respiratory distress. Chest wall: anterior chest wall tenderness present over superior and lateral edges of sternum. No palpable deformities. Heart: RRR, normal S1 and S2 heart sounds. No murmurs, clicks, rubs appreciated on exam. Skin: Clear without rashes or skin color changes. EKG: normal EKG, normal sinus rhythm, there are no previous tracings available for comparison. Results for orders placed or performed in visit on 05/04/24 ECG 12-LEAD ROUTINE (Non Lab to perform-Today) Result Value Ref Range Ventricular Rate 82 BPM Atrial Rate 82 BPM P-R Interval 170 ms QRS Duration 86 ms QT 346 ms QTc 404 ms P [place] 62 degrees R [place] 64 degrees T [place] 49 degrees XR Chest 2 Views Result Date: 05/04/2024 EXAM: XR CHEST 2 VIEWS LOCATION: [facility] DATE: 05/04/2024 INDICATION: Cough. Chest pain. COMPARISON: None. IMPRESSION: Negative chest. Assessment ICD-10-CM 1. Asthma with acute exacerbation, unspecified asthma severity, unspecified whether persistent (HRC) J45.901 albuterol 2.5 mg/3 mL (0.083%) (PROVENTIL) nebulizer solution 2.5 mg albuterol 2.5 mg/3 mL, 0.083%, (PROVENTIL) nebulizer solution predniSONE (DELTASONE) 20 MG tablet Nebulizer with compressor, adult (E0570, A7005, A7003) 2. Acute cough R05.1 XR Chest 2 Views Test (Urine) - Collect in Lab 3. Chest pain, unspecified type R07.9 ECG 12-LEAD ROUTINE (Non Lab to perform-Today) Philip Blanco was seen today for cough. Diagnoses and all orders for this visit: Asthma with acute exacerbation, unspecified asthma severity, unspecified whether persistent (HRC) - albuterol 2.5 mg/3 mL (0.083%) (PROVENTIL) nebulizer solution 2.5 mg - albuterol 2.5 mg/3 mL, 0.083%, (PROVENTIL) nebulizer solution; Inhale one vial every 20 minutes up to three times. Then every 1-4 hours as needed. - predniSONE (DELTASONE) 20 MG tablet; Take 2 Tablets (40 mg) by mouth daily for 5 days. - Nebulizer with compressor, adult (E0570, A7005, A7003) Acute cough - XR Chest 2 Views; Future - Test (Urine) - Collect in Lab; Future Chest pain, unspecified type - ECG 12-LEAD ROUTINE (Non Lab to perform-Today) Chest x-ray negative. Given persistent and prolonged coughing symptoms with associated chest tightness and history of persistent asthma, highly suspect acute asthma exacerbation secondary to recent viral URI or seasonal allergies. Although patient's chest symptoms are reproducible to palpation on exam, EKG was obtained out of precaution and was normal. Though I was not highly suspicious of cardiac cause to symptoms, normal EKG and chest x-ray are reassuring to both myself and the patient. Highly suspect costochondritis as cause to anterior chest pain and inflammation. Patient provided with albuterol nebulizer treatment in clinic with improvement in chest tightness and patient's ability to take in a deep breath. Will treat patient's acute asthma exacerbation with short burst of oral prednisone and at-home albuterol neb treatments. Continue previously prescribed asthma treatments, use humidified air in the room at night, and raise head of bed while sleeping. Follow up with PCP within the next 1 week for re- evaluation. Discussed return precautions including signs and symptoms associated with new or worsening chest pain, worsening respiratory infection, worsening asthma exacerbation, acute respiratory distress, and/or symptoms not improving on provided and supportive treatments. Patient agrees to plan and has no further questions or concerns at this time. Patient Instructions Chest x-ray taken in clinic today shows no signs of pneumonia or other other structural causes to your symptoms. You are likely experiencing an acute asthma exacerbations secondary to recent viral upper respiratory infection or seasonal allergies. This can typically cause symptoms of cough, chest tightness, and shortness of breath. Treatment is to start you on a short burst of oral steroids (prednisone) and to continue your usually daily asthma treatments (daily Advair and albuterol as needed). It is also very reassuring that your EKG was normal and vitals have remained stable during your visit today. Additionally, the ability to reproduce your chest pain with touch makes it more likely theyour chest pain is consistent with soft tissue inflammation related to frequent coughing and asthmaexacerbations. However, it is very important that you continue to monitor yourself for new or worsening symptoms, including, but not limited to, new or worsening chest pain, chest pain that is worse with exertion or positioning, new or worsening shortness of breath, coughing up blood, new onset dizziness, or other symptoms that are concern. If this were to occur, go to the emergency room or call 911 for further evaluation and care. Jessie Cain PA-C 05/04/2024, 6:35 PM documented in this encounter Nursing Notes * Pancho Andrews MA - 05/04/2024 2:45 PM CDT Francis Donahue is a 24 y.o.female presents to the Urgent Care for COUGH Symptoms began: 2 week(s) ago. Fever: absent. Other associated symptoms: None . Any recent close contact with an individual with a known similar illness (including COVID): yes: Daughter has had a cough. Current medications: cough suppressant of choice. Patient requests an excuse letter for work/school: No documented in this encounter Plan of Treatment Not on file documented as of this encounter Procedures Procedure Name Priority Date/Time Associated Diagnosis Comments ECG-ROUTINE 12 LEAD; INTRPT & REPRT Routine 05/04/2024 3:29 PM CDT Chest pain, unspecified type documented in this encounter Results * ECG 12-LEAD ROUTINE (Non Lab to perform-Today) (05/04/2024 3:29 PM CDT) Ventricular Rate 82 BPM [facility] Atrial Rate 82 BPM [facility] P-R Interval 170 ms [facility] QRS Duration 86 ms [facility] QT 346 ms [facility] QTc 404 ms [facility] P [place] 62 degrees [facility] R [place] 64 degrees [facility] T [place] 49 degrees [facility] 05/04/2024 3:29 PM CDT Narrative [facility] - 05/06/2024 9:24 AM CDT Sinus rhythm Normal ECG No previous ECGs available Confirmed by Keren Wagner ([id number]) on 05/06/2024 9:24:00 AM Procedure Note Keren Wagner MD - 05/06/2024 Sinus rhythm Normal ECG No previous ECGs available Confirmed by Keren Wagner ([id number]) on 05/06/2024 9:24:00 AM Jessie Cain PA-C EKG Performing Organization Address City/[facility]/ZIP Co de Phone Number [facility] [address] [place] [address] * XR Chest 2 Views (05/04/2024 3:09 PM CDT) Anatomical Region Laterality Modality Chest, Lung Computed Radiogr aphy 05/04/2024 3:09 PM CDT Narrative 05/04/2024 3:17 PM CDT EXAM: XR CHEST 2 VIEWS LOCATION: [facility] DATE: 05/04/2024 INDICATION: Cough. Chest pain. COMPARISON: None. IMPRESSION: Negative chest. Procedure Note Germán Pelaez MD - 05/04/2024 EXAM: XR CHEST 2 VIEWS LOCATION: [facility] DATE: 05/04/2024 INDICATION: Cough. Chest pain. COMPARISON: None. IMPRESSION: Negative chest. Jessie Cain PA-C RAD GD * Test (Urine) - Collect in Lab (05/04/2024 2:55 PM CDT) HCG, Urine Negative Negative 05/04/2024 3:00 PM CDT [facility] Urine Non-blood Collection / Unknown 05/04/2024 2:55 PM CDT 05/04/2024 2:55 PM CDT Jessie Cain PA-C LAB_1 [facility] [address] [place] [address], [facility] documented in this encounter Visit Diagnoses Diagnosis Asthma with acute exacerbation, unspecified asthma severity, unspecified whether persistent (HRC)- Primary Acute cough Chest pain, unspecified type Cough, unspecified type documented in this encounter Administered Medications Inactive Administered Medications - up to 3 most recent administrations Medication Order MAR Action Action Date Dose Rate Site albuterol 2.5 mg/3 mL (0.083%) (PROVENTIL) nebulizer solution 2.5 mg 2.5 mg, Inhalation, ONCE, On Thu05/04/24 at 1600, For 1 dose, Administer VIA RT Nebulization Given 05/04/2024 3:45 PM CDT 2.5 mg documented in this encounter Care Teams Boiler Technician Relationship Specialty Start Date End Date No Primary/Referring, Phy PCP - General 04/21/24 documented as of this encounter
--- OUTSIDE RECORDS SUMMARY | 2024-06-24 15:38 | XMS_ITS | Encounter Summary ---
Author Organization [employer] Address [address], [place] [address] Care Team Providers Care Photo Mask Inspector Name Role Phone Unavailable Primary Care Provider Unavailabl e Encounter Details Date Type Department Care Team (Late st Contact Info) Description 2024 1:20 PM CDT Lab Visit [facility] [address] [place] [address] Lipid screening; Screening for thyroid disorder; Localized superficial swelling, mass, or lump; Screening for diabetes mellitus Social History Tobacco Use Types Packs/Day Years Used Date Smoking Tobacco: Never Assessed PHQ-2 Answer Date Recorded PHQ-2 Score 0 2024 Sex and Gender Information Value Date Recorded Sex Assigned at Not on file Gender Identity Not on file Sexual Orientation Not on file documented as of this encounter Plan of Treatment Not on file documented as of this encounter Procedures Procedure Name Priority Date/Time Associated Diagnosis Comments LDL CHOLESTEROL, DIRECT MEASURED Routine 2024 9:18 AM CDT Lipid screening TSH, SENSITIVE Routine 2024 9:18 AM CDT Screening for thyroid disorder COMPLETE BLOOD COUNT-NO DIFF Routine 2024 9:18 AM CDT Localized superficial swelling, mass, or lump HGB A1C Routine 2024 9:18 AM CDT Screening for diabetes mellitus documented in this encounter Results * Hgb A1C (2024 9:18 AM CDT) Pathologist [facility] Hemoglobin A1C 5.3 <=5.6 % 2024 11:27 AM CDT [employer] [facility] Estimated Average Glucose (Calc) 105 < 117 mg/dL 2024 11:27 AM CDT [facility] Comment:Estimated average gl ucose (eAG) converts A1c into glucose units (mg/dL) and estimates average glucose over the past approximately 3 months. The eAG reference interval (<117 mg/dL) corresponds to an A1c of <5.7%. Blood Venipuncture / Unknown 2024 9:18 AM CDT 2024 9:18 AM CDT Marianela Cardenas MD LAB_1 Performing Organization Address City/State/[facility] Co de Phone Number [facility] [address] * (ABNORMAL) Complete Blood Count-No Diff (2024 9:18 AM CDT) Pathologist [facility] WBC 7.8 3.5 - 10.5 x10(9)/L 2024 9:51 AM CDT [facility] RBC 5.15(H) 3.90 - 5.03 x10(12)/L 2024 9:51 AM CDT [facility] Hemoglobin 14.5 12.0 - 15.5 g/dL 2024 9:51 AM CDT [facility] HCT 43.4 34.9 - 44.5 % 2024 9:51 AM CDT [facility] MCV 84.3 80.0 - 100.0 fL 2024 9:51 AM CDT [facility] MCH 28.2 27.6 - 33.3 pg 2024 9:51 AM CDT [facility] MCHC 33.4 31.5 - 35.2 g/dL 2024 9:51 AM CDT [facility] RDW 12.9 11.9 - 15.5 % 2024 9:51 AM CDT [facility] Platelets 361 150 - 450 x10(9)/L 2024 9:51 AM CDT [facility] Blood Venipuncture / Unknown 2024 9:18 AM CDT 2024 9:18 AM CDT Marianela Cardenas MD LAB_1 [facility] [address] [place] [address] * TSH (2024 9:18 AM CDT) TSH, Sensitive 1.73 0.30 - 4.50 uIU/mL 2024 3:43 PM CDT [facility] Blood Venipuncture / Unknown 2024 9:18 AM CDT 2024 9:18 AM CDT Marianela Cardenas MD LAB_1 Performing Organization Address [facility] Co de Phone Number [facility] [address] * LDL Cholesterol, Direct Measured (2024 9:18 AM CDT) LDL, Direct 80 <=130 mg/dL 2024 3:33 PM CDT [facility] Blood Venipuncture / Unknown 2024 9:18 AM CDT 2024 9:18 AM CDT Marianela Cardenas MD LAB_1 Performing Organization Address City/[facility] Co de Phone Number [facility] [address] documented in this encounter Visit Diagnoses Diagnosis Lipid screening Screening for lipoid disorders Screening for thyroid disorder Localized superficial swelling, mass, or lump Screening for diabetes mellitus documented in this encounter
--- OUTSIDE RECORDS SUMMARY | 2024-06-24 15:38 | XMS_ITS | Clinical Summary ---
Author Organization [facility] Address [address], [place] [address] Care Team Providers Care Renal Nurse Name Role Phone No Primary/Referring, Phy Primary Care Provider Unavailable Source Comments You are receiving this document as you are listed as the primary care provider,follow-up provider, or the patient has been referred to you for consultation.This is in compliance with the Medicare and[facility] EHR Incentive Program,which states Providers who transition their patient to another setting of careor provider of care or refers their patient to another provider of care shouldprovide summary care record for each transition of care or referral. 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 Treated with steroid in ER Medications Medication Sig Dispensed Refills Start Date End Date Status EPIPEN 0.3 MG/0.3ML injectionIndicat ions:Anaphylacti c reaction due to food Inject 0.3 mL intramuscularly once as needed for 1 dose. into thigh as directed for and/or potential for an allergic reaction 2 Each 1 3 Active Additional Information Patient not taking.Reported on 06/11/2016 cetirizine (AKA ZYRTEC) 10 MG tablet Take 1 Tablet (10 mg) by mouth daily. Active albuterol 2.5 mg/3 mL, 0.083%, (PROVENTIL) nebulizer solutionIndicati ons:Asthma with acute exacerbation, unspecified asthma severity, unspecified whether persistent (HRC) Inhale one vial every 20 minutes up to three times. Then every 1-4 hours as needed. 90 mL 1 4 Active PULMICORT FLEXHALER 180 MCG/ACT inhaler Inhale 1 Puff two times a day. 3 Each 3 4 Active ALBUterol sulfate HFA (VENTOLIN HFA) 108 (90 Base) MCG/ACT inhalerIndicatio ns:Mild persistent asthma without complication (HRC) inhale 2 puffs before exercise when needed and every 4 hours if needed for wheezing or recurrent cough- fast acting 18 g 3 4 Active azithromycin (ZITHROMAX Z-SONG) 250 MG tabletIndication s:Lower respiratory infection Take two tablets just once on Thursday , then start to take one tablet once a day for 4 more days for infection 6 Tab 0 6 06/08/20 24 Discontinued loratadine (CLARITIN) 10 MG tabletIndication s:Nasal congestion Take 1 Tab by mouth . once a day if needed for watery nose congestion or plugged ear feeling or itching 24 Tab 1 6 06/08/20 24 Discontinued ALBUterol sulfate HFA (VENTOLIN HFA) 108 (90 BASE) MCG/ACT inhalerIndicatio ns:Mild persistent asthma without complication (HRC) inhale 2 puffs before exercise when needed and every 4 hours if needed for wheezing or recurrent cough- fast acting 18 g 1 6 06/08/20 24 Discontinued(*M ed change OR same med OR reorder, new dose/directions ) fluticasone-salm eterol (ADVAIR DISKUS) 250-50 MCG/DOSE diskus inhalerIndicatio ns:Mild persistent asthma without complication (HRC) Inhale 1 Puff two times a day. Rinse mouth/gargle after use. 60 Each 1 7 06/08/20 24 Discontinued ammonium lactate (LAC-HYDRIN) 12 % lotion SMARTSIG:Sparingly Topical 4 06/08/20 24 Discontinued PULMICORT FLEXHALER 180 MCG/ACT inhaler Inhale 1 Puff daily. 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 ; Celiac disease( ?) Encounters Date Type Department Care Team Description 06/08/2024 4:00 PM CDT Office Visit [address] [address] Marianela Cardenas MD Mild persistent asthma without complication (HRC) 06/06/2024 3:10 PM CDT E-Visit [address] [address] Marianela Cardenas MD Chief Comp: QUESTIONS, GENERAL 05/09/2024 Orders Only [facility] ProviderTigre MD 05/09/2024 Orders Only [facility] ProviderTigre MD 05/04/2024 3:40 PM CDT Lab Visit [facility] [address] [place] [address] Cough, unspecified type 05/04/2024 2:55 PM CDT Ancillary Procedure [facility] [address] [place] [address] Jessie Cain PA-C Cough, unspecified type 05/04/2024 2:45 PM CDT Office Visit [facility] [address] [place] [address] Jessie Cain PA-C Asthma with acute exacerbation, unspecified asthma severity, unspecified whether persistent (HRC) (Primary Dx); Acute cough; Chest pain, unspecified type 05/04/2024 Nurse Triage [facility] [address] [place] [address] No Primary/Referring , Phy CHEST PAIN; COUGH 04/27/2024 2:15 PM CDT Ancillary Procedure [facility] [address] [place] [address] Marianela Cardenas MD Localized superficial swelling, mass, or lump 04/27/2024 Telephone [facility] [id number] [place] [address] Marianela Cardenas MD LAB RESULTS 04/17/2024 6:20 PM CDT E-Visit [facility] [id number] [place] [address] Marianela Cardenas MD Dx: Localized superficial swelling, mass, or lump (Primary Dx) 2024 1:20 PM CDT Lab Visit [facility] [id number] [place] [address] Lipid screening; Screening for thyroid disorder; Localized superficial swelling, mass, or lump; Screening for diabetes mellitus 2024 8:40 AM CDT Office Visit [facility] [id number] [place] [address] Marianela Cardenas MD Routine health maintenance (Primary Dx); Allergic rhinitis, unspecified seasonality, unspecified trigger; Lipid screening; Screening for diabetes mellitus; Screening for thyroid disorder; Mild intermittent asthma without complication (HRC); Localized superficial swelling, mass, or lump from Last 3 Months Immunizations Name Administration Dates Next Due DTaP 12/14/2002, 9,1998,1998,1998,1998,1998,1 DTaP/Hib 07/22/1999 HepB Adult (Engerix-B, 20+ y rs, 3 dose series) 07/22/1999,1998,1998 HepB Ped/Adol (0-18 yrs) 07/22/1999 Hib (ActHIB) 1998,1998 Hib, Unspecified Formulation 07/22/1999 Hib/HBV 1998,1998 IPV (Polio) 12/14/2002, 9,07/22/1999,1998,1998,1998,1998 Influenza IIV4 (Quadrivalent ) 0.5mL (68532) 07/23/2022 Influenza LAIV (Nasal, 2-49 yrs) 06/23/2013 Influenza, Unspecified Formulation 06/05/2008, MCV4 Menveo 2m.+ (two vial) 10/23/2014 MMR 12/14/2002,07/22/1999,07/22/1999 Tdap 09/04/2022,04/11/2010 Varicella 04/11/2010,08/21/2003 Family History Medical History Relation Name Comments Depression Mother Relation Name Status Comments Father Alive Mother Alive Sister 1 Alive Sister 2 Alive Sister 3 Alive Social History Tobacco Use Types Packs/Day Years Used Date Smoking Tobacco: Never Alcohol Use Standard Drinks/Week Comments No 0 (1 standard drink = 0.6 oz pur e alcohol) PHQ-2 Answer Date Recorded PHQ-2 Score 0 2024 Sex and Gender Information Value Date Recorded Sex Assigned at Not on file Gender Identity Not on file Sexual Orientation Not on file Last Filed Vital Signs Vital Sign Reading Time Taken Comments Blood Pressure 125/79 06/08/2024 3:57 PM CDT Pulse 97 06/08/2024 3:57 PM CDT Temperature 36.9 ??C (98.4 ??F) 05/04/2024 2:49 PM CD T Respiratory Rate 16 05/04/2024 2:49 PM CDT Oxygen Saturation 99% 05/04/2024 2:49 PM CDT Inhaled Oxygen Concentration - - Weight 76.7 kg (169 lb) 06/08/2024 3:57 PM CDT Height 168.3 cm (5' 6.26) 2024 8:30 AM CD T Body Mass Index 27.06 2024 8:30 AM CDT Plan of Treatment Health Maintenance Due Date Last Done Comments Cervical Cancer Screening Due 1998 Hep C Screening (Preventive Services) 1998 Pneumococcal (1 - PCV) 2004 HPV Vaccine (1 - 3-dose series) 2013 HIV Screening (Preventive Services) 2014 COVID-19 Vaccine (1 - season) 2024 Influenza (#1) 2024 07/23/2022, 11/0 02/2013, 06/05/2008, Additional history exists Asthma ACT 06/08/2025 06/08/2024, 12/03/2015 Adult Preventive Visit 2026 2024, 2015 DTaP/Tdap/Td (8 - Tdap) 09/04/2032 09/04/19, 04/11/2010, 12/14/2002, Additional history exists Zoster/Shingles (1 of 2) 2048 HepB Completed 07/22/1999, 01/1999, 1998, Additional history exists Hib Completed 07/22/1999, 01/1999, 1998, Additional history exists IPV (Polio) Completed 12/14/2002, 01/1999, 07/22/1999, Additional history exists Varicella Completed 04/11/2010, 08/21/2003 MCV4 Completed 10/23/2014 Chlamydia Discontinued 12/03/2015 (Completed) HepA Aged Out No longer eligi ble based on patient's age to complete this topic Infant RSV Aged Out No longer eligi ble based on patient's age to complete this topic Procedures Procedure Name Priority Date/Time Associated Diagnosis Comments ULTRASOUND AL 05/09/2024 ULTRASOUND AL 05/09/2024 ECG-ROUTINE 12 LEAD; INTRPT & REPRT Routine 05/04/2024 3:29 PM CDT Chest pain, unspecified type XR CHEST 2 VIEWS STAT 05/04/2024 3:09 PM CDT Cough, unspecified type TEST (URINE) STAT 05/04/2024 2:55 PM CDT Cough, unspecified type US NECK/HEAD SOFT TISSUE NOT THYROID Routine 04/27/2024 2:17 PM CDT Localized superficial swelling, mass, or lump HGB A1C Routine 2024 9:18 AM CDT Screening for diabetes mellitus COMPLETE BLOOD COUNT-NO DIFF Routine 2024 9:18 AM CDT Localized superficial swelling, mass, or lump TSH, SENSITIVE Routine 2024 9:18 AM CDT Screening for thyroid disorder LDL CHOLESTEROL, DIRECT MEASURED Routine 2024 9:18 AM CDT Lipid screening from Last 3 Months Results * ULTRASOUND SC (05/09/2024) Only the most recent of2 resultswithin the time period is included. Anatomical Region Laterality Modality Other Interface Provider DUMMY/OTHER/AR * ECG 12-LEAD ROUTINE (Non Lab to perform-Today) (05/04/2024 3:29 PM CDT) Ventricular Rate 82 BPM MUSE GHP Atrial Rate 82 BPM MUSE [facility] P-R Interval 170 ms MUSE [facility]HP QRS Duration 86 ms MUSE GHP QT 346 ms MUSE GHP QTc 404 ms MUSE [facility]HP P [place] 62 degrees MUSE GHP R [place] 64 degrees MUSE GHP T [place] 49 degrees MUSE GHP 05/04/2024 3:29 PM CDT Narrative MUSE [facility]HP - 05/06/2024 9:24 AM CDT Sinus rhythm Normal ECG No previous ECGs available Confirmed by Keren Wagner ([id number]) on 05/06/2024 9:24:00 AM Procedure Note Keren Wagner MD - 05/06/2024 Sinus rhythm Normal ECG No previous ECGs available Confirmed by Keren Wagner ([id number]) on 05/06/2024 9:24:00 AM Jessie Cain PA-C EKG MUSE [facility] [address] [place] [address] * XR Chest 2 Views (05/04/2024 3:09 PM CDT) Anatomical Region Laterality Modality Chest, Lung Computed Radiogr aphy 05/04/2024 3:09 PM CDT Narrative 05/04/2024 3:17 PM CDT EXAM: XR CHEST 2 VIEWS LOCATION: [facility] DATE: 05/04/2024 INDICATION: Cough. Chest pain. COMPARISON: None. IMPRESSION: Negative chest. Procedure Note Germán Pelaez MD - 05/04/2024 EXAM: XR CHEST 2 VIEWS LOCATION: [facility] DATE: 05/04/2024 INDICATION: Cough. Chest pain. COMPARISON: None. IMPRESSION: Negative chest. Jessie Cain PA-C RAD GD * Test (Urine) - Collect in Lab (05/04/2024 2:55 PM CDT) HCG, Urine Negative Negative 05/04/2024 3:00 PM CDT [facility] Urine Non-blood Collection / Unknown 05/04/2024 2:55 PM CDT 05/04/2024 2:55 PM CDT Jessie Cain PA-C LAB_1 [facility] [address] [place] [address], [facility] * US Neck/Head Soft Tissue Not Thyroid (04/27/2024 2:17 PM CDT) Anatomical Region Laterality Modality Neck, Head Ultrasound 04/27/2024 2:17 PM CDT Narrative 04/27/2024 3:07 PM CDT EXAM: US NECK/HEAD SOFT TISSUE NOT THYROID LOCATION: [facility] DATE: 04/27/2024 INDICATION: Lump, Localized swelling, mass and lump, unspe, PALPABLE MASS COMPARISON: None. TECHNIQUE: A focused ultrasound examination of the palpable abnormality. FINDINGS: Corresponding to the palpable abnormality are a few adjacent normal lymph nodes with the largest measuring 0.7 x 0.5 x 0.2 cm. No fluid collection or soft tissue mass. IMPRESSION: 1. ??Normal lymph nodes. Procedure Note Elmer Norman MD - 04/27/2024 EXAM: US NECK/HEAD SOFT TISSUE NOT THYROID LOCATION: [facility] DATE: 04/27/2024 INDICATION: Lump, Localized swelling, mass and lump, unspe, PALPABLEMASS COMPARISON: None. TECHNIQUE: A focused ultrasound examination of the palpable abnormality. FINDINGS: Corresponding to the palpable abnormality are a few adjacentnormal lymph nodes with the largest measuring 0.7 x 0.5 x 0.2 cm. No fluidcollection or soft tissue mass. IMPRESSION: 1. Normal lymph nodes. Marianela Cardenas MD RAD US * LDL Cholesterol, Direct Measured (2024 9:18 AM CDT) LDL, Direct 80 <=130 mg/dL 2024 3:33 PM CDT [facility] Blood Venipuncture / Unknown 2024 9:18 AM CDT 2024 9:18 AM CDT Marianela Cardenas MD LAB_1 Performing Organization Address [facility] Co de Phone Number [facility] [address] * TSH (2024 9:18 AM CDT) TSH, Sensitive 1.73 0.30 - 4.50 uIU/mL 2024 3:43 PM CDT [facility] Blood Venipuncture / Unknown 2024 9:18 AM CDT 2024 9:18 AM CDT Marianela Cardenas MD LAB_1 [facility] [address] [id number] * (ABNORMAL) Complete Blood Count-No Diff (2024 9:18 AM CDT) WBC 7.8 3.5 - 10.5 x10(9)/L 2024 [...] - 15.5 % 2024 9:51 AM CDT [facility] Platelets 361 150 - 450 x10(9)/L 2024 9:51 AM CDT [facility] Blood Venipuncture / Unknown 2024 9:18 AM CDT 2024 9:18 AM CDT Marianela Cardenas MD LAB_1 [facility] [address] [place] [address] * Hgb A1C (2024 9:18 AM CDT) Hemoglobin A1C 5.3 <=5.6 % 2024 11:27 AM CDT [facility] Estimated Average Glucose (Calc) 105 < 117 mg/dL 2024 11:27 AM [facility] Comment:Estimated average gl ucose (eAG) converts A1c into glucose units (mg/dL) and estimates average glucose over the past approximately 3 months. The eAG reference interval (<117 mg/dL) corresponds to an A1c of <5.7%. Blood Venipuncture / Unknown 2024 9:18 AM CDT 2024 9:18 AM CDT Marianela Cardenas MD LAB_1 Performing Organization Address City/State/[facility] Co de Phone Number [facility] [address] [address], [facility] from Last 3 Months Care Teams Renal Nurse Relationship Specialty Start Date End Date No Primary/Referring, Phy PCP - General 04/21/24
--- OUTSIDE RECORDS SUMMARY | 2024-06-24 15:38 | XMS_ITS | Encounter Summary ---
Author Organization [employer] Address [address] [address] Care Team Providers Care Metallurgical Or Materials Technician Name Role Phone Unavailable Primary Care Provider Unavailabl e Reason for Referral * Procedure/Equipment (Routine) - Incomplete Specialty Diagnoses / Procedures Referred By Noemy de la paz Referred To Contact Diagnoses Localized superficial swelling, mass, or lump Procedures US Neck/Head Soft [place] [address] [place] [address] Referral ID Status Reason Start Date Expiration Date V isits Requested Visits Authorized [id number] Incomplete 04/19/2024 07/19/2025 1 1 Reason for Visit * Reason Comments Follow-up, NOS Entered automaticall y based on patient selection in [employer]. Encounter Details Date Type Department Care Team ([facility] st Contact Info) Description 04/17/2024 6:20 PM CDT E-Visit [facility] [address] [place], [place] [phone] [place] [address] [place], [place] [phone] Dx: Localized superficial swelling, mass, or lump (Primary Dx) Social History Tobacco Use Types Packs/Day Years Used Date Smoking Tobacco: Never Assessed PHQ-2 Answer Date Recorded PHQ-2 Score 0 2024 Sex and Gender Information Value Date Recorded Sex Assigned at Not on file Gender Identity Not on file Sexual Orientation Not on file documented as of this encounter Nursing Notes * Marianela Cardenas MD - 04/19/2024 3:38 PM CDT US ORDERED.PLEASE,NOTIFY Marianela Cardenas MD * Jia Christensen RN - 04/19/2024 10:12 AM CDT Clinician: Review and advise and Route to Frontline or reply to pt via [employer] Patient/client care manager request: New Order: Radiology Specific Request: Ultrasound ThanksJia RN Note from visit with Dr. Cardenas 04/13/24: Localized superficial swelling, mass, or lump-more likely enlarge lymph node - Complete Blood Count-No Diff; Future -recommended observation -considering evaluation with US if persist or any new symptom documented in this encounter Plan of Treatment Not on file documented as of this encounter Results * US Neck/Head Soft Tissue Not Thyroid (04/27/2024 2:17 PM CDT) Anatomical Region Laterality Modality Neck, Head Ultrasound 04/27/2024 2:17 PM CDT Narrative 04/27/2024 3:07 PM CDT EXAM: US NECK/HEAD SOFT TISSUE NOT THYROID LOCATION: [facility] DATE: 04/27/2024 INDICATION: Lump, Localized swelling, [...] US NECK/HEAD SOFT TISSUE NOT THYROID LOCATION: [facility] DATE: 04/27/2024 INDICATION: Lump, Localized swelling, mass and lump, unspe, PALPABLEMASS COMPARISON: None. TECHNIQUE: A focused ultrasound examination of the palpable abnormality. FINDINGS: Corresponding to the palpable abnormality are a few adjacentnormal lymph nodes with the largest measuring 0.7 x 0.5 x 0.2 cm. No fluidcollection or soft tissue mass. IMPRESSION: 1. Normal lymph nodes. Marianela Cardenas MD RAD US documented in this encounter Visit Diagnoses Diagnosis Localized superficial swelling, mass, or lump- Primary Localized superficial swelling, mass, or lump documented in this encounter
--- OUTSIDE RECORDS SUMMARY | 2024-06-24 15:38 | XMS_ITS | Encounter Summary ---
Author Organization [employer] Address [address] [place] [address] Care Team Providers Care Relief Worker Name Role Phone No Primary/Referring, Phy Primary Care Provider Unavailable Reason for Visit * Reason Comments CHEST PAIN COUGH Encounter Details Date Type Department Care Team ([facility] st Contact Info) Description 05/04/2024 Nurse Triage Careline [address] [place], [place] [phone] No Primary/Referring, Phy CHEST PAIN; COUGH Social History Tobacco Use Types Packs/Day Years [...] as of this encounter Nursing Notes * Lisseth Pierce RN - 05/04/2024 2:02 PM CDT 2:02 PM transfer from the appointment center Verified patient identity: Yes Speaking with patient Situation/Background (brief explanation of current symptoms/situation): Patient states she has intermittent headaches, a runny nose that passed and an ongoing cough. She states she was exposed to covid 2 weeks ago but never tested herself. She called and set up an appointment today for 3:30 pm as her cough has lingered now for 2 weeks. She awoke during the night at 2 am with chest pain that she describes as tightness and pressure and is ongoing and constant. She denies fever or difficulty breathing. Reviewed with patient pertinent medical history (as it related to the call): Yes Reviewed with patient pertinent medications (as they relate to call): N/A Reviewed with patient pertinent allergies (as they relate to call): N/A Reason for Disposition SEVERE or constant chest pain or pressure (Exception: Mild central chest pain, present only when coughing.) Protocols used: Coronavirus (COVID-19) Diagnosed or [id number] Plan: Go to ER/UCC now for evaluation. Discussed closest urgent care. Patient plans to go now for evaluation verses wait for her clinic appointment today. Pt agrees with plan, no further questions. Advised patient/caller to call back CareLine if there are further questions or concerns or if things change or become worse. The CareLine is available 09/03. Lisseth Rojas RN CareLine 2:10 PM 05/04/2024 documented in this encounter Plan of Treatment Not on file documented as of this encounter Visit Diagnoses Not on filedocumented in this encounter Care Teams Relief Worker Relationship Specialty Start Date End Date No Primary/Referring, Phy PCP - General 04/21/24 documented as of this encounter
--- OUTSIDE RECORDS SUMMARY | 2024-06-24 15:38 | XMS_ITS | Encounter Summary ---
Author Organization [employer] Address [address] [place] [address] Care Team Providers Care Tank House Operator Helper Name Role Phone No Primary/Referring, Phy Primary Care Provider Unavailable Reason for Visit * Reason Comments LAB RESULTS Encounter Details Date Type Department Care Team ([facility] st Contact Info) Description 04/27/2024 Telephone [facility] [address] [place], [place] [phone] [place] [address] [place], [place] [address] LAB RESULTS Social History Tobacco Use Types Packs/Day Years [...] as of this encounter Nursing Notes * Jennyfer Brown CMA - 04/27/2024 4:07 PM CDT Patient called and given the message below. Jennyfer Brown CMA * Marianela Cardenas MD - 04/27/2024 3:28 PM CDT NECK US .IMPRESSION: 1. Normal lymph nodes. PLEASE,NOTIFY Marianela Cardenas MD documented in this encounter Plan of Treatment Not on file documented as of this encounter Visit Diagnoses Not on filedocumented in this encounter Care Teams Tank House Operator Helper Relationship Specialty Start Date End Date No Primary/Referring, Phy PCP - General 04/21/24 documented as of this encounter
--- OUTSIDE RECORDS SUMMARY | 2024-06-24 15:38 | XMS_ITS | Encounter Summary ---
Author Organization [employer] Address [address] [place] [address] Care Team Providers Care Instructional Materials Director Name Role Phone No Primary/Referring, Phy Primary Care Provider Unavailable Reason for Visit * Reason Comments QUESTIONS, GENERAL Entered automaticall y based on patient selection in [employer]. Encounter Details Date Type Department Care Team (Late st Contact Info) Description 06/06/2024 3:10 PM CDT E-Visit [facility] [address] [place], [place] [address] [place] [address] [place], [place] [address] Chief Comp: QUESTIONS, GENERAL Social History Tobacco Use Types Packs/Day Years [...] as of this encounter Nursing Notes * Sonya Fuentes RN - 06/06/2024 3:11 PM CDT Clinician: Review order(s) and sign as appropriate Patient/career coordinator request: Medication question Specific Request: Pt is requesting a refill. Entered as historical. Pt reports only has a few days of medication left. Lv on 04/13/[address] Cardenas. Routing to her to advise. Requested Prescriptions Pending Prescriptions Disp Refills PULMICORT FLEXHALER 180 MCG/ACT inhaler 1 Each 11 Sig: Inhale 1 Puff daily. Sonya Andrew RN documented in this encounter Plan of Treatment Not on file documented as of this encounter Visit Diagnoses Not on filedocumented in this encounter Care Teams Instructional Materials Director Relationship Specialty Start Date End Date No Primary/Referring, Phy PCP - General 04/21/24 documented as of this encounter
--- OUTSIDE RECORDS SUMMARY | 2024-06-24 15:38 | XMS_ITS | Encounter Summary ---
Author Organization [facility] Address [address], [place] [address] Care Team Providers Care Foundation Drill Operator Helper Name Role Phone No Primary/Referring, Phy Primary Care Provider Unavailable Encounter Details Date Type Department Care Team (Late st Contact Info) Description 05/04/2024 3:40 PM CDT Lab Visit [facility] Laboratory [address] [place], [place] [id number] Cough, unspecified type Social History Tobacco Use [...] Procedure Name Priority Date/Time Associated Diagnosis Comments TEST (URINE) STAT 05/04/2024 2:55 PM CDT Cough, unspecified type documented in this encounter Results * Test (Urine) - Collect in Lab (05/04/2024 2:55 PM CDT) HCG, Urine Negative Negative 05/04/2024 3:00 PM CDT [facility] Urine Non-blood Collection / Unknown 05/04/2024 2:55 PM CDT 05/04/2024 2:55 PM CDT Jessie Cain PA-C LAB_1 [facility] [address] documented in this encounter Visit Diagnoses Diagnosis Cough, unspecified type documented in this encounter Care Teams Foundation Drill Operator Helper Relationship Specialty Start Date End Date No Primary/Referring, Phy PCP - General 04/21/24 documented as of this encounter
--- OUTSIDE RECORDS SUMMARY | 2024-06-24 15:38 | XMS_ITS | Encounter Summary ---
Author Organization [facility] Address [address], [place] [address] Care Team Providers Care Spring Inspector Name Role Phone No Primary/Referring, Phy Primary Care Provider Unavailable Reason for Visit * Procedure/Equipment (Routine) - Incomplete Specialty Diagnoses / Procedures Referred By Noemy de la paz Referred To Contact Diagnoses Localized superficial swelling, mass, or lump Procedures US Neck/Head Soft [place] [address] [place] [address] Referral ID Status Reason Start Date Expiration Date V isits Requested Visits Authorized [id number] Incomplete 04/19/2024 07/19/2025 1 1 Encounter Details Date Type Department Care Team (Latest Contact Info) Description 04/27/2024 2:15 PM CDT Ancillary Procedure [facility] Ultrasound [address] [place], [place] [address] [place] [address] [place], [place] [phone] Localized superficial swelling, mass, or lump Social History Tobacco Use Types Packs/Day Years [...] Procedure Name Priority Date/Time Associated Diagnosis Comments US NECK/HEAD SOFT TISSUE NOT THYROID Routine 04/27/2024 2:17 PM CDT Localized superficial swelling, mass, or lump documented in this encounter Results * US Neck/Head Soft Tissue Not Thyroid (04/27/2024 2:17 PM CDT) Anatomical Region Laterality Modality Neck, Head Ultrasound 04/27/2024 2:17 PM CDT Narrative 04/27/2024 3:07 PM CDT EXAM: US NECK/HEAD SOFT TISSUE NOT THYROID LOCATION: [facility] DATE: 04/27/2024 INDICATION: Lump, Localized swelling, mass and lump, unspe, PALPABLE MASS COMPARISON: None. TECHNIQUE: A focused ultrasound examination of the palpable abnormality. FINDINGS: Corresponding to the palpable abnormality are a few adjacent normal lymph nodes with the largest measuring 0.7 x 0.5 x 0.2 cm. No fluid collection or soft tissue mass. IMPRESSION: 1. ??Normal lymph nodes. Procedure Note lEmer Norman MD - 04/27/2024 EXAM: US NECK/HEAD SOFT TISSUE NOT THYROID LOCATION: [facility] DATE: 04/27/2024 INDICATION: Lump, Localized [...] Diagnoses Diagnosis Localized superficial swelling, mass, or lump documented in this encounter Care Teams Spring Inspector Relationship Specialty Start Date End Date No Primary/Referring, Phy PCP - General 04/21/24 documented as of this encounter
--- OUTSIDE RECORDS SUMMARY | 2024-06-24 15:39 | XMS_ITS | Encounter Summary ---
Author Organization [employer] Address [address], [place] [address] Care Team Providers Care Managed Care Coordinator Name Role Phone Unavailable Primary Care Provider Unavailabl e Reason for Visit * Reason Comments ROUTINE HEALTH MAINTENANCE Encounter Details Date Type Department Care Team ([facility] st Contact Info) Description 2024 8:40 AM CDT Office Visit [facility] [address] [place], [place] [phone] [place] [address] [place], [place] [phone] Routine health maintenance (Primary Dx); Allergic rhinitis, unspecified seasonality, unspecified trigger; Lipid screening; Screening for diabetes mellitus; Screening for thyroid disorder; Mild intermittent asthma without complication (HRC); Localized superficial swelling, mass, or lump Social [...] Sign Reading Time Taken Comments Blood Pressure 120/79 2024 8:30 AM CDT Pulse 89 2024 8:30 AM CDT Temperature - - Respiratory Rate - - Oxygen Saturation - - Inhaled Oxygen Concentration - - Weight 74.8 kg (165 lb) 2024 8:30 AM CDT Height 168.3 cm (5' 6.26) 2024 8:30 AM CD T Body Mass Index 26.42 2024 8:30 AM CDT documented in this encounter Patient Instructions * Patient Instructions* Ej Blackwood RMA - 2024 8:40 AM CDT Images from the original note were not included. Well Visit, Ages 18 to 65: Care Instructions Well visits can help you stay healthy. Your doctor has checked your overall health and may have suggested ways to take good care of yourself. Your doctor also may have recommended tests. You can helpprevent illness with healthy eating, good sleep, vaccinations, regular exercise, and other steps. Get the tests that you and your doctor decide on. Depending on your age and risks, examples might include screening for diabetes; hepatitis C; HIV; and cervical, breast, lung, and colon cancer. Screening helps find diseases before any symptoms appear. Eat healthy foods. Choose fruits, vegetables, whole grains, lean protein, and low-fat dairy foods. Limit saturated fat and reduce salt. Limit alcohol. Men should have no more than 2 drinks a day. Women should have no more than 1. For some people, no alcohol is the best choice. Exercise. Get at least 30 minutes of exercise on most days of the week. Walking can be a good choice. Reach and stay at your healthy weight. This will lower your risk for many health problems. Take care of your mental health. Try to stay connected with friends, family, and community, and find ways to manage stress. If you're feeling depressed or hopeless, talk to someone. A counselor can help. If you don't have acounselor, talk to your doctor. Talk to your doctor if you think you may have a problem with alcohol or drug use. This includes prescription medicines, marijuana, and other drugs. Avoid tobacco and nicotine: Don't smoke, vape, or chew. If you need help quitting, talk to your doctor. Practice safer sex. Getting tested, using condoms or dental dams, and limiting sex partners can help prevent STIs. Use control if it's important to you to prevent . Talk with your doctor about your choices and what might be best for you. Prevent problems where you can. Protect your skin from too much sun, wash your hands, brush your teeth twice a day, and wear a seat belt in the car. Where can you learn more? 1. Go to https://www.[employer]exway/healthlibrary. 2. Enter P072 in the search box. Current as of: March 22, 2023 Content Version: 14.1 ?? [employer]. Care instructions adapted under license by your healthcare professional. If you have questions about a medical condition or this instruction, always ask your healthcare professional. [employer] disclaims any warranty or liability for your use of this information. [employer] DNA is your genetic information, and it's unique to you. It can also hold the antony to discovering genetic health risks, creating personalized care and building a healthier community. [employer] is launching [employer], a study that looks at how DNA impacts health and how it canbe used to provide more personalized care to you, your family and community. What you can learn from your DNA Looking at your DNA can give insight to your personal traits, ancestral roots and risk of developing certain inherited conditions. Discover your genetic risk for: Hereditary breast and ovarian cancer Whelan syndrome (a type of hereditary colorectal cancer) Familial hypercholesterolemia (hereditary high cholesterol) Learn about your: Regional ancestry Traits like gluten tolerance, caffeine sensitivity and more How to participate Be a part of a program that could improve health care for you, your family and generations to come.If you're a [employer] or [facility] patient over the age of 18, you can take part in the study. Registration is quick and easy, and there is no cost to you. Learn more about [employer] and register at [employer] Your privacy is our priority We take great care to keep your information safe and secure and will not share personal data beyondwhat you have consented to. * Attachments The following attachments cannot be sent through Care Everywhere. * Lymphadenitis ([place]) * Well Visit: 18 to 65 Years ([place]) documented in this encounter Progress Notes * Marianela Cardenas MD - 2024 8:40 AM CDT Subjective Francis presents for ROUTINE HEALTH MAINTENANCE Current concerns: Other Symptoms Description: Lump behind rt ear How long have you had the symptoms? 1.5 week(s) How frequent are your symptoms: constant What seems to trigger or make symptoms worse? N/A What seems to make symptoms better? N/A Consumption of fruits and vegetables is 0-1 servings each day. Exercise is 3-5 times per week, 30 minutes or more. Hearing concerns: No Feels safe at home: Yes Objective BP 120/79 (BP Location: Right Arm, BP Cuff Size: Large) Pulse 89 Ht 5' 6.26 (1.683 m) Wt 165lb (74.8 kg) BMI 26.42 kg/m?? General: Appears stated age, alert and comfortable HEENT: normal eyes, ears, throat, oropharynx Neck: thyroid normal,behind right ear 5 mm movable non tender lump.no erythema Lungs: clear to auscultation, no wheezes or rales Breasts: no skin changes, no dominant masses, no axillary lymphadenopathy CV: regular rate and rhythm, normal S1 and S2 without murmur or click Abd: Soft, non-tender, no masses, no hepatomegaly or splenomegaly. : pelvic exam not indicated Skin: multiple round shape brown lesion Assessment/Plan Francis was seen today for routine health maintenance. Diagnoses and all orders for this visit: Routine health maintenance Allergic rhinitis, unspecified seasonality, unspecified trigger Lipid screening - LDL Cholesterol, Direct Measured; Future Screening for diabetes mellitus - Hgb A1C; Future Screening for thyroid disorder - TSH; Future Mild intermittent asthma without complication (HRC) Localized superficial swelling, mass, or lump-more likely enlarge lymph node - Complete Blood Count-No Diff; Future -recommended observation -considering evaluation with US if persist or any new symptom Patient counseled: -healthy diet -increasing physical activity -protection from UV light -calcium and vitamin D recommendations -recommended immunizations -contraception / STI prevention Marianela Cardenas MD documented in this encounter Plan of Treatment Not on file documented as of this encounter Results * Hgb A1C (2024 9:18 AM CDT) Hemoglobin A1C 5.3 <=5.6 % 2024 11:27 AM CDT [facility] Estimated Average Glucose (Calc) 105 < 117 mg/dL 2024 11:27 AM CDT [facility] Comment:Estimated average gl ucose (eAG) converts A1c into glucose units (mg/dL) and estimates average glucose over the past approximately 3 months. The eAG reference interval (<117 mg/dL) corresponds to an A1c of <5.7%. Blood Venipuncture / Unknown 2024 9:18 AM CDT 2024 9:18 AM CDT Marianela Cardenas MD LAB_1 [facility] [address] * (ABNORMAL) Complete Blood Count-No Diff (2024 9:18 AM CDT) [facility] WBC 7.8 3.5 - 10.5 x10(9)/L 2024 [...] - 450 x10(9)/L 2024 9:51 AM CDT [facility] Blood Venipuncture / Unknown 2024 9:18 AM CDT 2024 9:18 AM CDT Marianela Cardenas MD LAB_1 Performing Organization Address [facility] Co de Phone Number [facility] [address] [place] [address] * TSH (2024 9:18 AM CDT) TSH, Sensitive 1.73 0.30 - 4.50 uIU/mL 2024 3:43 PM CDT [facility] Blood Venipuncture / Unknown 2024 9:18 AM CDT 2024 9:18 AM CDT Marianela Cardenas MD LAB_1 Performing Organization Address [facility] Co de Phone Number [facility] [address] * LDL Cholesterol, Direct Measured (2024 9:18 AM CDT) LDL, Direct 80 <=130 mg/dL 2024 3:33 PM CDT [facility] Blood Venipuncture / Unknown 2024 9:18 AM CDT 2024 9:18 AM CDT Marianela Cardenas MD LAB_1 Performing Organization Address [facility] Co de Phone Number [facility] [address] documented in this encounter Visit Diagnoses Diagnosis Routine health maintenance- Primary Routine general medical examination at a health care facility Allergic rhinitis, unspecified seasonality, unspecified trigger Lipid screening Screening for lipoid disorders Screening for diabetes mellitus Screening for thyroid disorder Mild intermittent asthma without complication (HRC) Unspecified asthma Localized superficial swelling, mass, or lump documented in this encounter
--- OUTSIDE RECORDS SUMMARY | 2024-06-24 15:39 | XMS_ITS | Clinical Summary ---
Author Organization [facility] Address [address] [place] [address] Care Team Providers Care Diesel Locomotive Firer Name Role Phone Unavailable Primary Care Provider Unavailabl e Source Comments Patient records contain information from all sites at [facility]. For routine questions regarding patient records, call [phone] during business hours, M-F 8:00 AM - 5:00 PM Central Time. 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 Gender Identity Not on file Sexual Orientation Not on file Plan of Treatment Health Maintenance Due Date Last Done Comments Cervical/Vaginal Cancer Screening 1998 HIV Screening 1998 Hepatitis C Screening 1998 HPV Vaccines (1 - 3-dose series) 2013 Depression Screening (Annual PHQ-2) 08/17/2023 COVID-19 Vaccine ( season) 2024 03/05/2021, 02/07/2021 Influenza Vaccine (#1) 2024 , 05/06/2017, 06/23/2013, Additional history exists DTaP,Tdap,and Td Vaccines (9 - Td or Tdap) 09/04/2032 09/04/2022, 10/16/2021, 04/11/2010, Additional history exists Hepatitis B Vaccines Completed 07/22/1999, 1998, 1998, Additional history exists IPV Vaccines Completed 12/14/2002, 01/1999, 1998, Additional history exists Pneumococcal vaccine (0-64 years) Aged Out No longer eligible based on patient's [id number] [employer]
--- OUTSIDE RECORDS SUMMARY | 2024-06-24 15:39 | XMS_ITS | Referral Summary ---
Author Organization [facility] Address [address] [place] [address] Care Team Providers Care Selling Specialist Name Role Phone [facility] Primary Care Prov ider Unavailable Allergies Active Allergy Reactions Criticality Noted Date Comments Gluten Itching High 03/27/2011 Dark circles under eyes Nuts Anaphylaxis High 03/27/2011 All nuts except peanuts Wheat Itching High 03/27/2011 Dark circles under eyes Medications EPINEPHrine (EPIPEN JR IJ) Inject as directed. Active Cetirizine HCl (ZYRTEC ALLERGY PO) Take by mouth. Active ALBUTEROL IN Inhale into the lungs. Active ibuprofen (ADVIL,MOTRIN) 400 MG tabletIndication s:Contusion of lower leg, left,Sprain and strain of other specified sites of hip and thigh Take 1 tablet by mouth every 6 hours as needed for pain. 60 tablet 1 12/02/2010 Active Social History Tobacco Use Types Packs/Day Years Used Date Smoking Tobacco: Never Smokeless Tobacco: Never Comments:no secondhand smoke exposure Alcohol Use Standard Drinks/Week Comments No 0 (1 standard drink = 0.6 oz pur e alcohol) Comments No Sex and Gender Information Value Date Recorded Sex Assigned at Not on file Legal Sex Female 4:28 AM MANAGER DATA CENTER Gender Identity Not on file Sexual Orientation Not on file Last Filed Vital Signs Vital Sign Reading Time Taken Comments Blood Pressure 120/90 07/07/2018 10:30 PM MANAGER DATA CENTER Pulse 82 03/27/2011 1:27 PM CDT Temperature 37.3 ??C (99.1 ??F) 07/07/2018 8:39 PM CS T Respiratory Rate 12 07/07/2018 8:39 PM MANAGER DATA CENTER Oxygen Saturation 98% 07/07/2018 10:54 PM MANAGER DATA CENTER Inhaled Oxygen Concentration - - Weight 70.8 kg (156 lb) 07/07/2018 8:39 PM MANAGER DATA CENTER Height 167.6 cm (5' 6) 07/07/2018 8:39 PM MANAGER DATA CENTER Body Mass Index 25.18 07/07/2018 8:39 PM MANAGER DATA CENTER Plan of Treatment Not on file Insurance [facility] [address] [place] [address] [facility] [place] [address] Care Teams Selling Specialist Relationship Specialty Start Date End Date Sallie Araiza Med PCP - General 07/07/18
--- OUTSIDE RECORDS SUMMARY | 2024-06-24 15:39 | XMS_ITS | Clinical Summary ---
Author Organization [facility] Address [address] [place] [address] Care Team Providers Care Dieing Out Machine Operator Name Role Phone [facility] Primary Care Prov ider Unavailable [...] for pain. 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 PROCESSING SYSTEMS CONSULTANT Gender Identity Not on file Sexual Orientation Not on file Last Filed Vital Signs Vital Sign Reading Time Taken Comments Blood Pressure 120/90 07/07/2018 10:30 PM DATA PROCESSING SYSTEMS CONSULTANT Pulse 82 03/27/2011 1:27 PM CDT Temperature 37.3 ??C (99.1 ??F) 07/07/2018 8:39 PM CS T Respiratory Rate 12 07/07/2018 8:39 PM DATA PROCESSING SYSTEMS CONSULTANT Oxygen Saturation 98% 07/07/2018 10:54 PM DATA PROCESSING SYSTEMS CONSULTANT Inhaled Oxygen Concentration - - Weight 70.8 kg (156 lb) 07/07/2018 8:39 PM DATA PROCESSING SYSTEMS CONSULTANT Height 167.6 cm (5' 6) 07/07/2018 8:39 PM DATA PROCESSING SYSTEMS CONSULTANT Body Mass Index 25.18 07/07/2018 8:39 PM DATA PROCESSING SYSTEMS CONSULTANT Plan of Treatment Not on file Insurance [facility] Care Teams Dieing Out Machine Operator Relationship Specialty Start Date End Date Sallie Araiza PCP - General 07/07/18
--- OUTSIDE RECORDS SUMMARY | 2024-06-24 15:39 | XMS_ITS | Referral Summary ---
Author Organization [facility] Address [address] [place] [address] Care Team Providers Care Employee Relation Manager Name Role Phone Unavailable Primary Care Provider Unavailabl e Source Comments Patient records contain information from all sites at [facility]. For routine questions regarding patient records, call [phone] during business hours, M-F 8:00 AM - 5:00 PM Central Time. 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
--- OUTSIDE RECORDS SUMMARY | 2024-06-24 15:39 | XMS_ITS | Referral Summary ---
Author Organization [facility] Address [address] [place] [address] Care Team Providers Care Insulator Helper Name Role Phone Md Franny Primary Care Provider Unavailabl e Allergies No known active allergies Medications Medication Sig Dispensed Refills Start Date End Date Status QVAR 40 mcg/actuation Inhl Aerosol inhaler INHALE 2 PUFFS BY MOUTH 2 TIMES DAILY. 3 05/12/2017 Active cetirizine (ZYRTEC) 10 mg oral tablet Take 10 mg by mouth once daily. Active cyclobenzaprine (FLEXERIL) 10 mg oral tablet Take 1 tablet (10 mg) by mouth three times a day as needed for Muscle spasm. 15 tablet 08/08/2017 Active ibuprofen 600 mg oral tablet Take 1 tablet (600 mg) by mouth every 6 (six) hours as needed. 20 tablet 08/08/2017 Active Social History Tobacco Use Types Packs/Day Years Used Date Smoking Tobacco: Never Assessed Sex and Gender Information Value Date Recorded Sex Assigned at Not on file Gender Identity Not on file Sexual Orientation Not on file Plan of Treatment Not on file Care Teams Insulator Helper Relationship Specialty Start Date End Date Md Franny PCP - General 08/08/17
--- OUTSIDE RECORDS SUMMARY | 2024-06-24 15:39 | XMS_ITS | Clinical Summary ---
Author Organization [facility] Address [place], [place] [address] Care Team Providers Care Bookstore Clerk Name Role Phone Allison Chakraborty MD Unavailable [phone] None Primary Care Provider Unavailabl e Allergies Active Allergy Reactions Criticality Noted Date Comments Gluten *Unknown 10/23/2012 Pt desired diet is gluten free. Tree Nut Other - Describe In Comment Field High 06/03/2010 Throat closes Hydrocodone-Acetamin ophen GI Upset 12/15/2018 Wheat Itching High 03/27/2011 Dark circles under eyes Medications Medication Sig Dispensed Refills Start Date End Date Status cetirizine (ZYRTEC) 10 mg tablet Take 10 mg by mouth. Active albuterol HFA (Ventolin HFA) 90 mcg/actuation inhalerIndications:Mil d intermittent asthma without complication INHALE 2 PUFFS BY MOUTH EVERY 4 HOURS IF NEEDED FOR COUGH 1 Each 3 02/03/2023 Active EPINEPHrine (EPIPEN) 0.3 mg/0.3 mL auto-injectorIndicatio ns:Tree nut allergy INJECT ONE SYRINGE INTO THE MUSCLE ONE TIME NEEDED FOR ALLERGIC REACTION FOR UP TO ONE DOSE 1 Each 2 02/03/2023 Active budesonide (Pulmicort Flexhaler) 180 mcg/actuation inhalerIndications:Mil d intermittent asthma without complication Inhale 180 mcg by mouth two times daily. 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 URine from most recent visit showed only trace blood. Dr. Chow states if ua shows consistently >5 rbcs per field, she see nephrology. 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 Mild intermittent asthma 05/02/2011 Overview (05/02/2011): Appears to just need albuterol as needed. Gluten intolerance 05/02/2011 Overview (05/02/2011): Mother states that Francis was having frequent bloody noses; that it was recommended to her to avoid gluten and since then the bloody noses have resolved; they still pursue a gluten free diet. Allergic rhinitis, cause unspecified 05/02/2011 Overview (09/14/2018): On daily zyrtec. Now trying Nasonex. Saw Dr. Nichols, skin testing was negative. He will be doing immunocap. Headache(784.0) 05/02/2011 Overview (05/02/2011): Frontal in location. Trying nasonex spray on top of her zyrtec to see if this if allergies contributing to headaches. Other malaise and fatigue 05/02/2011 Overview (05/02/2011): For the past 1 year. She missed 15 days of school last year. 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 ; Celiac disease( ?) Mild persistent asthma 06/19/2010 Resolved Problems Problem Noted Date Diagnosed Date Resolved Date Influenza A 08/12/2013 12/13/2013 Pneumonia, organism unspecified(486) 10/24/2012 12/13/2013 Immunizations Name Administration Dates Next Due COVID-19 vaccine (The [employer]'s Card NTMyFrontSteps 30mcg/0.3mL) PF, MDV 03/05/2021,02/07/2021 DTaP 12/14/2002, 9,1998,08/23,1998 HIB-HepB (Comvax) 1998,1998 Hepatitis B (Peds) 07/22/1999 Hib Conjugate, Unspecified 07/22/1999 Inactivated Polio Vaccine 12/14/2002,01/1999,1998,06/13 Influenza Virus, Unspecified 06/05/2008,06/28/20 Influenza, IIV3 (Age >=3 years) 06/05/2008,06/28 Influenza, IIV4 07/02/2018 Influenza, IIV4 (=>6mos) MDV 05/06/2017 MENINGOCOCCAL VACCINE 2 VIAL [id number] (MENVEO) 10/23/2014 MMR 12/14/2002,07/22/1999 Tdap 10/16/2021,04/11/2010 Varicella Vaccine 04/11/2010,08/21/2003 Family History Medical History Relation Name Comments Other Father aneurysm in art lit, blood clots/dissection Cancer Maternal Aunt of brain tumor at age of 6 Heart Disease Maternal Grandfather Arthritis Maternal Grandmother Good Health Mother Other Mother headaches, fati colton Cancer-breast Paternal Aunt 1 Cancer-breast Paternal Aunt 2 Alcoholism Paternal Grandfather Alzheimer's disease Paternal Grandmother Asthma Sister 1 Good Health Sister 2 Allergies Sister 3 Relation Name Status Comments Father Alive Maternal Aunt Maternal Grandfather Alive Maternal Grandmother Alive Mother Alive Paternal Aunt 1 Paternal Aunt 2 Paternal Grandfather (Age 40's) liver disease alcoholism Paternal Grandmother (Age 83) olga claudio's Sister 1 Sister 2 Sister 3 Social History Tobacco Use Types Packs/Day Years Used Date Smoking Tobacco: Never Smokeless Tobacco: Never Tobacco Cessation:Counseling Given: No Comments:No smokers Alcohol Use Standard Drinks/Week Comments No 0 (1 standard drink = 0.6 oz pur e alcohol) soc PHQ-2 Answer Date Recorded PHQ-2 TOTAL SCORE 0 02/03/2023 Social Connections Answer Date Recorded Frequency of Communication with Friends and Fami ly Not on file 02/11/2024 Financial Resource Strain Answer Date R ecorded Difficulty of Paying Living Expenses 3 02/03/2023 Difficulty of Paying Living Expenses Not on file 02/03/2023 Food Insecurity Answer Date Recorded Worried About Running Out of Food in the Last Ye ar 1 02/03/2023 Transportation Needs Answer Date Record ed Lack of Transportation (Medical) 1 02/03/2023 Housing Stability Answer Date Recorded Unable to Pay for Housing in the Last Year 1 02/03/2023 Sex and Gender Information Value Date Recorded Sex Assigned at Not on file Gender Identity Not on file Sexual Orientation Not on file Obstetrics History Para Term AB IAB SAB Ectopic Multiple Livin g Live Births 1 0 0 0 0 0 0 0 0 0 0 Date Outcome GA Total Labor Labor/2nd/3rd Weight Sex Type Anes PTL Evi A1 A5 Name Clin Last Filed Vital Signs Vital Sign Reading Time Taken Comments Blood Pressure 120/76 12/07/2023 8:51 AM CDT Pulse 80 12/07/2023 8:51 AM CDT Temperature 36.7 ??C (98 ??F) 11/13/2023 1:14 PM CDT Respiratory Rate 12 05/07/2023 5:57 PM CDT Oxygen Saturation 98% 11/13/2023 1:14 PM CDT Inhaled Oxygen Concentration - - Weight 74.4 kg (164 lb) 12/07/2023 8:51 AM CDT Height 167 cm (5' 5.75) 02/03/2023 3:20 PM CDT Body Mass Index 26.67 02/03/2023 3:20 PM CDT Plan of Treatment Health Maintenance Due Date Last Done Comments HIV for age 15-65 2013 HPV series for age 9-26 (1 - 3-dose series) 2013 Hepatitis C screening for age 18-79 2016 BMI (ht and wt on same day) for age 18+ 02/04/2024 02/03/2023, 10/16/2021, 08/03/2019, Additional history exists Depression screening for age 12+ 02/04/2024 02/03/2023, 01/30/2021, 08/03/2019, Additional history exists COVID-19 vaccine series (2023- season) 2024 03/05/2021, 02/07/2021 Influenza for age 9-49 04/17/2024 8, 05/06/2017, 06/05/2008, Additional history exists Pap test for age 21-65 04/10/2025 04/10/2022 Tetanus booster 10/17/2031 10/16/2021, 04/11/2010 Tdap Completed 10/16/2021, 04/11/2010 Pneumococcal series for age 6-64 Aged Out No longer eligible based on patient's age to complete this topic Procedures Procedure Name Priority Date/Time Associated Diagnosis Comments DATA ARCHITECT THIN PREP PAP SCREEN IMAGED Routine 04/10/2022 3:30 PM CDT from Last 3 Months or Most Recently Relevant to Health Maintenance Results * DATA ARCHITECT THIN PREP PAP SCREEN IMAGED (04/10/2022 3:30 PM CDT) Case Report Gynecologic Cytology Report ? Case: [id number] ? Authorizing Provider: ??Nina Maravilla PA-C ?Collected: ? 04/10/2022 1530 ? Ordering Location: ? [facility] ?Received: ?04/14/2022 0830 ? First Screen: ?Sumi Ross ? Rescreen: ?Freda Dumont ? Specimen: ?DATA ARCHITECT ThinPrep Vial Screening, Cervical ? 04/29/2022 8:39 AM CDT [facility]AT[facility] INTERPRETATION/ RESULT NEGATIVE FOR INTRAEPITHELIAL LESION OR MALIGNANCY (NIL) (none) 04/29/2022 8:39 AM CDT [facility] IMEN ADEQUACY Satisfactory for evaluation No endocervical component seen 04/29/2022 8:39 AM CDT [facility] HPV REQUEST HPV if ASCUS 04/29/2022 8:39 AM CDT [facility] Date of LMP 02/06/2022 04/29/2022 8:39 AM CDT [facility] Last Pap Date 04/29/2022 8:39 AM CDT [facility] Comment:unk Last Pap Result First Pap/Unknown 8:39 AM CDT [facility] Abnormal Pap or [place] Bx in last 5 years No 04/29/2022 8:39 AM CDT [facility] Menstrual Status 04/29/2022 8:39 AM CDT [facility] [place] Bx Done Today No 04/29/2022 8:39 AM CDT [facility] Additional Information 04/29/2022 8:39 AM CDT [facility] Comment: Interpreted at [facility] [place] [facility] - [address], [place] [address] Automated Review Successful 04/29/2022 8:39 AM CDT [facility] Comment:Specimen processed s uccessfully by automated associate professor of forestry device, ThinPrep Imaging System, [employer] Note The pap test is a screening technique, not a diagnostic procedure. It is used primarily to screen for squamous cancers and precursor lesions. Published studies have shown that it is subject to both false negative and false positive results. The pap test should not be used as the sole means to diagnose or exclude pre-malignant and malignant lesions. 04/29/2022 8:39 AM CDT [facility] Other (Cervical) 04/10/2022 3:30 PM CDT 04/14/2022 8:30 AM CDT November [facility]CYTOLOGY [facility] [address] [place] [address], from Last 3 Months or Most Recently Relevant to Health Maintenance Advance Directives * Full Code (Latest Code Status on File) Date Activated Date Inactivated Comments 12/15/2018 12:15 PM 12/15/2018 5:49 PM * Full Code Date Activated Date Inactivated Comments 10/23/2012 10:46 PM 10/24/2012 8:23 PM Care Teams Bookstore Clerk Relationship Specialty Start Date End Date None . PCP - General 11/13/23 Allison Chakraborty MD [address] [place] [id number] Dermatology Dermatology 10/08/17
--- OUTSIDE RECORDS SUMMARY | 2024-06-24 15:39 | XMS_ITS | Clinical Summary ---
Author Organization [facility] Address [address] [place] [address] Care Team Providers Care Stripper Cutter Machine Name Role Phone None, Md Primary Care Provider Unavailabl e Allergies No [...] Health Maintenance Due Date Last Done Comments Hepatitis C Screening 1998 Pap Smear 1998 Anxiety Screening (LIZ-2) 1999 Depression Assessment (PHQ-2) 1999 HPV Vaccine (1 - 3-dose series) 2013 Adult Tetanus Booster 04/11/2020 04/11/2010 COVID-19 Vaccine (2023- season) 2024 Influenza Vaccine (#1) 2024 7, 06/23/2013, 06/05/2008, Additional history exists RSV Vaccines (1 - 1-dose 75+ series) 2073 Pneumococcal <65 Aged Out No longer e ligible based on patient's age to complete this topic Care Teams Stripper Cutter Machine Relationship Specialty Start Date End Date None, PCP - General 08/08/17
--- OUTSIDE RECORDS SUMMARY | 2024-06-24 15:39 | XMS_ITS ---
Author Organization [facility] Address [address] [place] [address] Care Team Providers Care Dual Hose Cementer Name Role Phone Unavailable Unavailable Unavailable Surgery Details Not on file Complications Check Surgery Details section. Procedure Estimated Blood Loss Check Surgery Details section. Procedure Findings Check Surgery Details section. Procedure Specimens Taken Check Surgery Details section.
--- OUTSIDE RECORDS SUMMARY | 2024-06-24 15:39 | XMS_ITS | Encounter Summary ---
Author Organization [facility] Address [address] [place] [address] Care Team Providers Care Security Field Supervisor Name Role Phone No Primary/Referring, Phy Primary Care Provider Unavailable Encounter Details Date Type Department Care Team (Latest Contact Info) Description 2000 Office Visit Liliana Lutz MD [address] [place] [address] Social History Tobacco Use Types Packs/Day Years Used Date Smoking Tobacco: Never Assessed Sex and Gender Information Value Date Recorded Sex Assigned at Not on file Gender Identity Not on file Sexual Orientation Not on file documented as of this encounter Progress Notes * Liliana Lutz - 2000 12:00 AM CSTS. This is a 2 month old who has had cold symptoms for the past couple of days with congestion and a cough. She really has not had a runny nose, it is mainly congested. Mom has been doing bulb suction and today the nasal discharge looked green. She has been eating OK, perhaps slightly less than usual and she has had a few loose stools also. No vomiting. She has had no fevers. O. Vigorous, smiling baby. In no distress. Weight 15# 8 ounces. Temperature is 99.8 rectally. Both TM's are clear and pearly. Oral pharynx is clear. Mucus membranes are moist. Lungs are clear. Good air movement. No wheezing. No retractions. A. URI P. Reassurance. Continue with the bulb suction, adding normal saline drops and mainly suction before feeding. Humidifier for nighttime. Recheck if symptoms persist or fever develops. cc: BUILDER documented in this encounter Plan of Treatment Not on file documented as of this encounter Visit Diagnoses Not on filedocumented in this encounter Care Teams Security Field Supervisor Relationship Specialty Start Date End Date No Primary/Referring, Phy PCP - General 04/21/24 documented as of this encounter
--- OUTSIDE RECORDS SUMMARY | 2024-06-24 15:39 | XMS_ITS | Encounter Summary ---
Author Organization [facility] Address [address], [place] [address] Care Team Providers Care Turbine Engine Assembler Name Role Phone No Primary/Referring, Phy Primary Care Provider Unavailable Encounter Details Date Type Department Care Team (Latest Contact Info) Description 1998 Orders Only Jose Membreno Social History Tobacco Use Types Packs/Day Years Used Date Smoking Tobacco: Never Assessed Sex and Gender Information Value Date Recorded Sex Assigned at Not on file Gender Identity Not on file Sexual Orientation Not on file documented as of this encounter Plan of Treatment Not on file documented as of this encounter Visit Diagnoses Not on filedocumented in this encounter Care Teams Turbine Engine Assembler Relationship Specialty Start Date End Date No Primary/Referring, Phy PCP - General 04/21/24 documented as of this encounter
--- OUTSIDE RECORDS SUMMARY | 2024-06-24 15:39 | XMS_ITS | Encounter Summary ---
Author Organization [facility] Address [address] [address] Care Team Providers Care Extractor Machine Operator Name Role Phone No Primary/Referring, Phy Primary Care Provider Unavailable Encounter Details Date Type Department Care Team (Latest Contact Info) Description 1998 Orders Only Elgin Monson MD [id number] [place] [address] Social History Tobacco Use Types Packs/Day Years Used Date Smoking Tobacco: Never Assessed Sex and Gender Information Value Date Recorded Sex Assigned at Not on file Gender Identity Not on file Sexual Orientation Not on file documented as of this encounter Plan of Treatment Not on file documented as of this encounter Visit Diagnoses Not on filedocumented in this encounter Care Teams Extractor Machine Operator Relationship Specialty Start Date End Date No Primary/Referring, Phy PCP - General 04/21/24 documented as of this encounter
--- OUTSIDE RECORDS SUMMARY | 2024-06-24 15:39 | XMS_ITS | Encounter Summary ---
Author Organization [facility] Address [address], [place] [address] Care Team Providers Care Dag Coater Name Role Phone No Primary/Referring, Phy Primary Care Provider Unavailable Encounter Details Date Type Department Care Team (Latest Contact Info) Description 1998 Orders Only Rylie Freedman Social History Tobacco Use Types Packs/Day Years Used Date Smoking Tobacco: Never Assessed Sex and Gender Information Value Date Recorded Sex Assigned at Not on file Gender Identity Not on file Sexual Orientation Not on file documented as of this encounter Plan of Treatment Not on file documented as of this encounter Visit Diagnoses Not on filedocumented in this encounter Care Teams Dag Coater Relationship Specialty Start Date End Date No Primary/Referring, Phy PCP - General 04/21/24 documented as of this encounter
--- OUTSIDE RECORDS SUMMARY | 2024-06-24 15:39 | XMS_ITS | Encounter Summary ---
Author Organization [facility] Address [address] [place] [address] Care Team Providers Care Traffic Expert Name Role Phone No Primary/Referring, Phy Primary Care Provider Unavailable Encounter Details Date Type Department Care Team (Latest Contact Info) Description 1998 Office Visit Grant Suresh [facility] [address] [place] [id number] Social History Tobacco Use Types Packs/Day Years Used Date Smoking Tobacco: Never Assessed Sex and Gender Information Value Date Recorded Sex Assigned at Not on file Gender Identity Not on file Sexual Orientation Not on file documented as of this encounter Progress Notes * Grant Suresh - 2000 12:00 AM CSTS. 3 month-old is brought in having developed a very red rash to his face and chest starting yesterday. It is fading a bit now. Mother states that the rash has been present for a long time but its colors accentuates and regresses up and down. He is doing more drooling from teething. He has been feeding quite well. On Similac with iron. No fever. Mother is using Dreft for the wash and no fabric softener. He has cradle cap which she has been trying to control with little success. O. Happy, alert with obvious skin rash. First is a fairly heavy seborrheic dermatitis of the scalp, that is extensive with crusting, flaking, etc.. This extends to the forehead which is dry, pebbly as well as to the cheeks and face. On his anterior trunk he has patches of red, dry rash. On the legs he has mostly marked excoriations. Both TM's clear. Pharynx neg.. Lungs clear. Heart w/o murmurs. A. Seborrheic dermatitis. Moderate to severe. R/o atopic with time. P. Initially will use baby oil followed immediately by Sebulex shampoo 4-5 times. The objective is controlling the scalp. Most of the other reaction should subside. Mother given 2% HC cream to use on the legs because of the extreme excoriations. Chronic use discouraged. Appropriate use reviewed. Will return to clinic in two weeks to review progress. documented in this encounter Plan of Treatment Not on file documented as of this encounter Visit Diagnoses Not on filedocumented in this encounter Care Teams Traffic Expert Relationship Specialty Start Date End Date No Primary/Referring, Maey PCP - General 04/21/24 documented as of this encounter
[2024-06-24 18:45] LABS: Chlamydia DNA Amplified* NOT DETECTED (No Detected); GC DNA Amplified* NOT DETECTED (No Detected)
== END 2024-06-24 15:36 | disposition home or self-care (01) ==
PROVIDERS: PCP Family Medicine; Visit Provider Registered Nurse
DX: Z34.91 Encounter for supervision of normal pregnancy, unspecified, first trimester (principal); O46.91 Antepartum hemorrhage, unspecified, first trimester; Z3A.08 8 weeks gestation of pregnancy
CPT/HCPCS: 76817; 86592; 86703; 86704; 86706; 86762; 86787; 86803; 86850; 86900; 86901; 87086; 87340; 87491; 87591

== ENCOUNTER 2024-07-12 15:34 | Outpatient (CLI) | payer OTHER, SELFPAY ==
--- OUTSIDE RECORDS SUMMARY | 2024-07-12 15:37 | XMS_ITS | Encounter Summary ---
Author Organization [facility] Address [address], [place] [address] Care Team Providers Care Port Purser Name Role Phone No Primary/Referring, Phy Primary Care Provider Unavailable Reason for Visit * Procedure/Equipment (Routine) - Incomplete Specialty Diagnoses / Procedures Referred By Noemy de la paz Referred To Contact Diagnoses Cough, unspecified type Procedures XR Chest 2 Views Jessie Cain PA-C [address] [place] [address] Referral ID Status Reason Start Date Expiration Date V isits Requested Visits Authorized [id number] Incomplete 05/04/2024 08/03/2025 1 1 Encounter Details Date Type Department Care Team (Late st Contact Info) Description 05/04/2024 2:55 PM CDT Ancillary Procedure [facility] Radiology [id number] [place] [address] Jessie Cain PA-C [address] [place] [address] Cough, unspecified type Social History Tobacco Use [...] CDT EXAM: XR CHEST 2 VIEWS LOCATION: [facility] DATE: 05/04/2024 INDICATION: Cough. Chest pain. COMPARISON: None. IMPRESSION: Negative chest. Procedure Note Germán Pelaez MD - 05/04/2024 EXAM: XR CHEST 2 VIEWS LOCATION: [facility] [place] DATE: 05/04/2024 INDICATION: Cough. Chest pain. COMPARISON: None. IMPRESSION: Negative chest. Jessie Cain PA-C RAD GD documented in this encounter Visit Diagnoses Diagnosis Cough, unspecified type documented in this encounter Care Teams Port Purser Relationship Specialty Start Date End Date No Primary/Referring, Phy PCP - General 04/21/24 documented as of this encounter
--- OUTSIDE RECORDS SUMMARY | 2024-07-12 15:37 | XMS_ITS | Encounter Summary ---
Author Organization [facility] Address [address], [place] [address] Care Team Providers Care Cellars Supervisor Name Role Phone Unavailable Primary Care Provider Unavailabl e Reason for Referral * Procedure/Equipment (Routine) - Incomplete Specialty Diagnoses / Procedures Referred By Noemy de la paz Referred To Contact Diagnoses Localized superficial swelling, mass, or lump Procedures US Neck/Head Soft [place] [address] [place] [address] Referral ID Status Reason Start Date Expiration Date V isits Requested Visits Authorized [id number] Incomplete 04/19/2024 07/19/2025 1 1 Reason for Visit * Reason Comments Follow-up, NOS Entered automaticall y based on patient selection in [employer]. Encounter Details Date Type Department Care Team ([facility] st Contact Info) Description 04/17/2024 6:20 PM CDT E-Visit [facility] [address] [place], [place] [address] [place] [address] [place], [place] [id number] Dx: Localized superficial swelling, mass, or lump [...] to [facility] or reply to pt via [facility] Patient/wild animal caretaker request: New Order: Radiology Specific Request: Ultrasound [...] US NECK/HEAD SOFT TISSUE NOT THYROID LOCATION: [facility] DATE: 04/27/2024 INDICATION: Lump, Localized swelling, mass and lump, unspe, PALPABLE MASS COMPARISON: None. TECHNIQUE: A focused ultrasound examination of the palpable abnormality. FINDINGS: Corresponding to the palpable abnormality are a few adjacent normal lymph nodes with the largest measuring 0.7 x 0.5 x 0.2 cm. No fluid collection or soft tissue mass. IMPRESSION: 1. Normal lymph nodes. Procedure Note Elmer Norman MD - 04/27/2024 EXAM: US NECK/HEAD SOFT TISSUE NOT THYROID LOCATION: [facility] DATE: 04/27/2024 INDICATION: Lump, Localized swelling, mass [...]
--- OUTSIDE RECORDS SUMMARY | 2024-07-12 15:37 | XMS_ITS | Encounter Summary ---
Author Organization [facility] Address [address] [place] [address] Care Team Providers Care Community Chest Officer Name Role Phone No Primary/Referring, Phy Primary Care Provider Unavailable Encounter Details Date Type Department Care Team (Latest Contact Info) Description 05/09/2024 Orders Only HIM DEPARTMENT Provider, [place] [address] Social History Tobacco Use Types Packs/Day Years [...] on filedocumented in this encounter Care Teams Community Chest Officer Relationship Specialty Start Date End Date No Primary/Referring, Phy PCP - General 04/21/24 documented as of this encounter
--- OUTSIDE RECORDS SUMMARY | 2024-07-12 15:37 | XMS_ITS | Referral Summary ---
Author Organization [facility] Address [address] [place] [address] Care Team Providers Care Store Merchandiser Name Role Phone Md Franny Primary Care Provider Unavailabl e Allergies No known active allergies Medications QVAR 40 mcg/actuation Inhl Aerosol inhaler INHALE [...] Years Used Date Smoking Tobacco: Never Assessed Comments Unknown Sex and Gender Information Value Date Recorded Sex Assigned at Not on file Legal Sex Female 3:25 PM CLIENT ASSOCIATE Gender Identity Not on file Sexual Orientation Not on file Plan of Treatment Not on file Care Teams Store Merchandiser Relationship Specialty Start Date End Date Md Franny PCP - General 08/08/17
--- OUTSIDE RECORDS SUMMARY | 2024-07-12 15:37 | XMS_ITS | Clinical Summary ---
Author Organization [facility] Address [address] [place] [address] Care Team Providers Care Dedicated Intermodal Truck Driver Name Role Phone Unavailable Primary Care Provider Unavailabl e Source Comments Patient records contain information from all sites at [facility]. For routine questions regarding patient records, call [phone] during business hours, M-F 8:00 AM - 5:00 PM Central Time. Record requests for emergency care only can be directed to [phone] at any time.[facility] Social History Tobacco Use Types Packs/Day [...] on file Legal Sex Female 9:11 AM RADIATION CONTROL TECHNICIAN Gender Identity Not on file Sexual Orientation [...] [place] [id number] GENERIC COMMERCIAL
--- OUTSIDE RECORDS SUMMARY | 2024-07-12 15:37 | XMS_ITS | Encounter Summary ---
Author Organization [employer] Address [address], [place] [address] Care Team Providers Care Tripe Washer Name Role Phone No Primary/Referring, Phy Primary [...] on filedocumented in this encounter Care Teams Tripe Washer Relationship Specialty Start Date End Date No Primary/Referring, Phy PCP - General 04/21/24 documented as of this encounter
--- OUTSIDE RECORDS SUMMARY | 2024-07-12 15:37 | XMS_ITS | Encounter Summary ---
Author Organization [employer] Address [address] [place] [address] Care Team Providers Care X Ray Physician Name Role Phone No Primary/Referring, Phy Primary Care Provider Unavailable Encounter Details Date Type Department Care Team (Latest Contact Info) Description 1998 Office Visit Liliana Lutz MD [address] [place] [address] Social History Tobacco Use Types Packs/Day Years [...] if symptoms persist or fever develops. cc: NE PHARMACOLOGY TECHNICIAN documented in this encounter Plan of Treatment Not on file documented as of this encounter Visit Diagnoses Not on filedocumented in this encounter Care Teams X Ray Physician Relationship Specialty Start Date End Date No Primary/Referring, Phy PCP - General 04/21/24 documented as of this encounter
--- OUTSIDE RECORDS SUMMARY | 2024-07-12 15:37 | XMS_ITS | Encounter Summary ---
Author Organization [facility] Address [address] [address] Care Team Providers Care Brick Veneer Maker Name Role Phone No Primary/Referring, Phy Primary Care Provider Unavailable Encounter Details Date Type Department Care Team (Latest Contact Info) Description 1998 Orders Only Elgin Monson MD [id number] [place] [address] Social History Tobacco Use Types Packs/Day Years Used Date Smoking Tobacco: Never Assessed Sex and Gender Information Value Date Recorded Sex Assigned at Not on file Gender Identity Not on file Sexual Orientation Not on file documented as of this encounter Plan of Treatment Not on file documented as of this encounter Visit Diagnoses Not on filedocumented in this encounter Care Teams Brick Veneer Maker Relationship Specialty Start Date End Date No Primary/Referring, Phy PCP - General 04/21/24 documented as of this encounter
--- OUTSIDE RECORDS SUMMARY | 2024-07-12 15:37 | XMS_ITS | Clinical Summary ---
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 Gender Identity Not on file Sexual Orientation Not on file Last Filed Vital Signs Vital Sign Reading Time Taken Comments Blood Pressure 120/90 07/07/2018 10:30 PM BEAM MACHINE OPERATOR Pulse 82 03/27/2011 1:27 PM CDT Temperature 37.3 C (99.1 F) 07/07/2018 8:39 PM BEAM MACHINE OPERATOR Respiratory Rate 12 07/07/2018 8:39 PM BEAM MACHINE OPERATOR Oxygen Saturation 98% 07/07/2018 10:54 PM BEAM MACHINE OPERATOR Inhaled Oxygen Concentration - - Weight 70.8 kg (156 lb) 07/07/2018 8:39 PM BEAM MACHINE OPERATOR Height 167.6 cm (5' 6) 07/07/2018 8:39 PM BEAM MACHINE OPERATOR Body Mass Index 25.18 07/07/2018 8:39 PM BEAM MACHINE OPERATOR Plan of Treatment Not on file Insurance [facility] CHOICE Care Teams Ham Facer Relationship Specialty Start Date End Date [place] [facility] PCP - General 07/07/18
--- OUTSIDE RECORDS SUMMARY | 2024-07-12 15:37 | XMS_ITS | Encounter Summary ---
Author Organization [employer] Address [address] [place] [address] Care Team Providers Care Career Services Officer Name Role Phone No Primary/Referring, Phy Primary Care Provider Unavailable Encounter Details Date Type Department Care Team (Latest Contact Info) Description 05/09/2024 Orders Only [facility] DEPARTMENT Provider, [place] [address] Social History Tobacco Use Types Packs/Day Years [...] on filedocumented in this encounter Care Teams Career Services Officer Relationship Specialty Start Date End Date No Primary/Referring, Phy PCP - General 04/21/24 documented as of this encounter
--- OUTSIDE RECORDS SUMMARY | 2024-07-12 15:37 | XMS_ITS | Clinical Summary ---
Author Organization [facility] Address [address] [place] [address] Care Team Providers Care Gas Meter Prover Name Role Phone No Primary/Referring, Phy Primary Care Provider Unavailable Source Comments You are receiving this document as you are listed as the primary care provider,follow-up provider, or the patient has been referred to you for consultation.This is in compliance with the Medicare and[facility] EHR Incentive Program,which states Providers who transition their patient to another setting of careor provider of care or refers their patient to another provider of care shouldprovide summary care record for each transition of care or referral. [employer] Allergies Active Allergy Reactions Criticality Noted Date Comments Nuts Anaphylaxis High 06/19/2010 Tree nuts.Seen 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 Treated with steroid in ER Medications Medication Sig Dispensed Refills Start Date End Date Status EPIPEN 0.3 MG/0.3ML injectionIndication s:Anaphylactic reaction due to food Inject 0.3 mL intramuscularly once as needed for 1 dose. into thigh as directed for and/or potential for an allergic reaction 2 Each 1 06/23/2013 Active Additional Information Patient not taking.Reported on 06/11/2016 cetirizine (AKA ZYRTEC) 10 MG tablet Take 1 Tablet (10 mg) by mouth daily. Active albuterol 2.5 mg/3 mL, 0.083%, (PROVENTIL) nebulizer solutionIndications :Asthma with acute exacerbation, unspecified asthma severity, unspecified whether persistent (HRC) Inhale one vial every 20 minutes up to three times. Then every 1-4 hours as needed. 90 mL 1 05/04/2024 Active PULMICORT FLEXHALER 180 MCG/ACT inhaler Inhale 1 Puff two times a day. 3 Each 3 06/08/2024 Active ALBUterol sulfate HFA (VENTOLIN HFA) 108 (90 Base) MCG/ACT inhalerIndications: Mild persistent asthma without complication (HRC) inhale 2 puffs before exercise when needed and every 4 hours if needed for wheezing or recurrent cough- fast acting 18 g 3 06/08/2024 Active Active Problems Problem Noted Date Diagnosed [...] Description 06/08/2024 4:00 PM CDT Office Visit [facility] [address] [place] [address] Marianela Cardenas MD Mild persistent asthma without complication (HRC) 06/06/2024 3:10 PM CDT E-Visit [facility] [address] [place] [address] Marianela Cardenas MD Chief Comp: QUESTIONS, GENERAL 05/09/2024 Orders Only [facility] DEPARTMENT ProviderTigre MD 05/09/2024 Orders Only [facility] DEPARTMENT Provider, MD Tigre 05/04/2024 3:40 PM CDT Lab Visit [facility] [address] [place] [address] Cough, unspecified type 05/04/2024 2:55 PM CDT Ancillary Procedure [facility] Radiology [address] [place] [address] Jessie Cain PA-C Cough, unspecified type 05/04/2024 2:45 PM CDT Office Visit [facility] [address] [place] [address] Jessie Cain PA-C Asthma with acute exacerbation, unspecified asthma severity, unspecified whether persistent (HRC) (Primary Dx); Acute cough; Chest pain, unspecified type 05/04/2024 Nurse Triage Careline [address] [place] [address] No Primary/Referring , Phy CHEST PAIN; COUGH 04/27/2024 2:15 PM CDT Ancillary Procedure [facility] Ultrasound [address] [place] [address] Marianela Cardenas MD Localized superficial swelling, mass, or lump 04/27/[address] [address] Marianela Cardensa MD LAB RESULTS 04/17/2024 6:20 PM CDT E-Visit [address] [address] Marianela Cardenas MD Dx: Localized superficial swelling, mass, or lump (Primary Dx) 2024 1:20 PM CDT Lab Visit [facility] [address] [place] [address] Lipid screening; Screening for thyroid disorder; Localized superficial swelling, mass, or lump; Screening for diabetes mellitus 2024 8:40 AM CDT Office Visit [address] [address] Marianela Cardenas MD Routine health maintenance (Primary [...] 12/14/2002, 9,07/22/1999,1998,1998,1998,1998 Influenza IIV4 (Quadrivalent ) 0.5mL (56239) 07/23/2022 Influenza LAIV (Nasal, 2-49 yrs) 06/23/2013 [...] 97 06/08/2024 3:57 PM CDT Temperature 36.9 C (98.4 F) 05/04/2024 2:49 PM CDT Respiratory Rate 16 05/04/2024 2:49 PM CDT [...] HIV Screening (Preventive Services) 2014 COVID-19 Vaccine ( season) 2024 Influenza (#1) 2024 07/23/2022, 02/2013, 06/05/2008, Additional history exists Asthma ACT [...] Name Priority Date/Time Associated Diagnosis Comments ULTRASOUND NC 05/09/2024 ULTRASOUND NC 05/09/2024 ECG-ROUTINE 12 LEAD; INTRPT & REPRT [...] Anatomical Region Laterality Modality Other Interface Provider MD DUMMY/OTHER/AR * ECG 12-LEAD ROUTINE (Non Lab to perform-Today) (05/04/2024 3:29 PM CDT) Ventricular Rate 82 BPM MUSE GHP Atrial Rate 82 BPM MUSE GHP P-R Interval 170 ms MUSE GHP QRS Duration 86 ms MUSE GHP QT 346 ms MUSE GHP QTc 404 ms MUSE GHP P Kimmell 62 degrees MUSE GHP R Kimmell 64 degrees MUSE GHP T Kimmell 49 degrees MUSE GHP 05/04/2024 3:29 PM CDT Narrative MUSE GHP - 05/06/2024 9:24 AM CDT Sinus rhythm Normal ECG No previous ECGs available Confirmed by Keren Wagner ([id number]) on 05/06/2024 9:24:00 AM Procedure Note Keren Wagner MD - 05/06/2024 Sinus rhythm Normal ECG No previous ECGs available Confirmed by Keren Wagner ([id number]) on 05/06/2024 9:24:00 AM Jessie Cain PA-C EKG Performing Organization Address City/[facility]/ZIP Co de Phone Number [facility] [address] [place] [address] * XR Chest 2 Views (05/04/2024 3:09 PM CDT) Anatomical Region Laterality Modality Chest, Lung Computed Radiogr aphy 05/04/2024 3:0 9 PM CDT Narrative 05/04/2024 3:17 PM CDT EXAM: XR CHEST 2 VIEWS LOCATION: [facility] DATE: 05/04/2024 INDICATION: Cough. Chest pain. COMPARISON: None. IMPRESSION: Negative chest. Procedure Note Germán Pelaez MD - 05/04/2024 EXAM: XR CHEST 2 VIEWS LOCATION: [facility] DATE: 05/04/2024 INDICATION: Cough. Chest pain. COMPARISON: None. IMPRESSION: Negative chest. Jessie Cain PA-C RAD GD * Test (Urine) - Collect in Lab (05/04/2024 2:55 PM CDT) HCG, Urine Negative Negative 05/04/2024 3:00 PM CDT [facility] Urine Non-blood Collection / Unknown 05/04/2024 2:55 PM CDT 05/04/2024 2:55 PM CDT Jessie Cain PA-C LAB_1 Performing Organization Address City/[facility]/ZIP Co de Phone Number [facility] [address] * US Neck/Head Soft Tissue Not Thyroid (04/27/2024 2:17 PM CDT) Anatomical Region Laterality Modality Neck, Head Ultrasound 04/27/2024 2:17 PM CDT Narrative 04/27/2024 3:07 PM CDT EXAM: US NECK/HEAD SOFT TISSUE NOT THYROID LOCATION: [facility] DATE: 04/27/2024 INDICATION: Lump, [...] US NECK/HEAD SOFT TISSUE NOT THYROID LOCATION: [facility] DATE: 04/27/2024 INDICATION: Lump, Localized swelling, mass and lump, unspe, PALPABLEMASS COMPARISON: None. TECHNIQUE: A focused ultrasound examination of the palpable abnormality. FINDINGS: Corresponding to the palpable abnormality are a few adjacentnormal lymph nodes with the largest measuring 0.7 x 0.5 x 0.2 cm. No fluidcollection or soft tissue mass. IMPRESSION: 1. Normal lymph nodes. Marianela Cardenas MD [facility] US * LDL Cholesterol, Direct Measured (2024 9:18 AM CDT) LDL, Direct 80 <=130 mg/dL 2024 3:33 PM CDT [facility] Blood Venipuncture / Unknown 2024 9:18 AM CDT 2024 9:18 AM CDT Marianela Cardenas MD LAB_1 [facility] [address] [place] [address] * TSH (2024 9:18 AM CDT) TSH, Sensitive 1.73 0.30 - 4.50 uIU/mL 2024 3:43 PM CDT [facility] Blood Venipuncture / Unknown 2024 9:18 AM CDT 2024 9:18 AM CDT Marianela Cardenas MD LAB_1 [facility] [address] * (ABNORMAL) Complete Blood Count-No Diff (2024 9:18 AM CDT) Pathologist [facility] WBC 7.8 3.5 - 10.5 x10(9)/L 2024 [...] 9:18 AM CDT Marianela Cardenas MD LAB_1 [facility] [address] [facility] [place] [address] * Hgb A1C (2024 9:18 AM CDT) Hemoglobin A1C 5.3 <=5.6 % 2024 11:27 AM CDT [facility] [facility] Estimated Average Glucose (Calc) 105 < 117 mg/dL 2024 11:27 AM T [facility] [facility] Comment:Estimated average gl ucose (eAG) converts A1c into glucose units (mg/dL) and estimates average glucose over the past approximately 3 months. The eAG reference interval (<117 mg/dL) corresponds to an A1c of <5.7%. Blood Venipuncture / Unknown 2024 9:18 AM CDT 2024 9:18 AM CDT Marianela Cardenas MD LAB_1 Performing Organization Address City/[facility]/ZIP Co de Phone Number [facility] [address] [address], [facility] from Last 3 Months Care Teams Gas Meter Prover Relationship Specialty Start Date End Date No Primary/Referring, Phy PCP - General 04/21/24
--- OUTSIDE RECORDS SUMMARY | 2024-07-12 15:37 | XMS_ITS | Encounter Summary ---
Author Organization [employer] Address [address] [address] Care Team Providers Care Database Management Specialist Name Role Phone No Primary/Referring, Phy Primary Care Provider Unavailable Reason for Visit * Reason Comments ASTHMA Follow up- needing a refill Encounter Details Date Type Department Care Team ([facility] st Contact Info) Description 06/08/2024 4:00 PM CDT Office Visit [facility] [address] [place], [place] [address] [place] [address] [place], [place] [address] Mild persistent asthma without complication (HRC) Social [...] asthma documented in this encounter Care Teams Database Management Specialist Relationship Specialty Start Date End Date No Primary/Referring, Phy PCP - General 04/21/24 documented as of this encounter
--- OUTSIDE RECORDS SUMMARY | 2024-07-12 15:37 | XMS_ITS | Encounter Summary ---
Author Organization [employer] Address [address] [place] [address] Care Team Providers Care Transport Conductor Name Role Phone No Primary/Referring, Phy Primary Care Provider Unavailable Encounter Details Date Type Department Care Team (Latest Contact Info) Description 1998 Office Visit [facility] [address] [place] [address] Social History Tobacco Use Types Packs/Day Years [...] on filedocumented in this encounter Care Teams Transport Conductor Relationship Specialty Start Date End Date No Primary/Referring, Maey PCP - General 04/21/24 documented as of this encounter
--- OUTSIDE RECORDS SUMMARY | 2024-07-12 15:37 | XMS_ITS | Encounter Summary ---
Author Organization [facility] Address [address] [address] Care Team Providers Care Piece Marker Small Arms Name Role Phone No Primary/Referring, Phy Primary Care Provider Unavailable Reason for Visit * Procedure/Equipment (Routine) - Incomplete Specialty Diagnoses / Procedures Referred By Noemy de la paz Referred To Contact Diagnoses Localized superficial swelling, mass, or lump Procedures US Neck/Head Soft [place] [address] [place] [address] Referral ID Status Reason Start Date Expiration Date V isits Requested Visits Authorized [id number] Incomplete 04/19/2024 07/19/2025 1 1 Encounter Details Date Type Department Care Team (Latest Contact Info) Description 04/27/2024 2:15 PM CDT Ancillary Procedure [facility] Ultrasound [address] [place], [place] [address] [place] [address] [place], [place] [id number] Localized superficial swelling, mass, or lump Social [...] US NECK/HEAD SOFT TISSUE NOT THYROID LOCATION: [facility] DATE: 04/27/2024 INDICATION: Lump, Localized swelling, mass [...] US NECK/HEAD SOFT TISSUE NOT THYROID LOCATION: [facility] DATE: 04/27/2024 INDICATION: Lump, Localized swelling, mass [...] lump documented in this encounter Care Teams Piece Marker Small Arms Relationship Specialty Start Date End Date No Primary/Referring, Phy PCP - General 04/21/24 documented as of this encounter
--- OUTSIDE RECORDS SUMMARY | 2024-07-12 15:37 | XMS_ITS | Clinical Summary ---
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 Gender Identity Not on file Sexual Orientation Not on file Plan of Treatment Health Maintenance Due Date Last Done Comments Hepatitis C Screening 1998 Pap Smear 1998 Anxiety Screening (LIZ-2) 1999 Depression Assessment (PHQ-2) 1999 HPV Vaccine (1 - 3-dose series) 2013 Adult Tetanus Booster 04/11/2020 04/11/2010 COVID-19 Vaccine ( - season) 2024 Influenza Vaccine (#1) 2024 7, 06/23/2013, 06/05/2008, Additional history exists RSV Vaccines (1 - 1-dose 75+ series) 2073 Pneumococcal <65 Aged Out No longer e ligible based on patient's age to complete this topic Care Teams System Development Engineer Relationship Specialty Start Date End Date None, PCP - General 08/08/17
--- OUTSIDE RECORDS SUMMARY | 2024-07-12 15:37 | XMS_ITS | Encounter Summary ---
Author Organization [employer] Address [address] [address] Care Team Providers Care Dry Wall Finisher Name Role Phone Unavailable Primary Care Provider Unavailabl e Encounter Details Date Type Department Care Team (Late st Contact Info) Description 2024 1:20 PM CDT Lab Visit [facility] [address] [place] [address] Lipid screening; Screening for thyroid disorder; Localized [...] Hgb A1C (2024 9:18 AM CDT) Pathologist [facility] Hemoglobin A1C 5.3 <=5.6 % 2024 11:27 AM CDT [facility] Estimated Average Glucose (Calc) 105 < 117 mg/dL 2024 11:27 AM CDT [facility] Comment:Estimated average gl ucose (eAG) converts A1c into glucose units (mg/dL) and estimates average glucose over the past approximately 3 months. The eAG reference interval (<117 mg/dL) corresponds to an A1c of <5.7%. Blood Venipuncture / Unknown 2024 9:18 AM CDT 2024 9:18 AM CDT Marianela Cardenas MD LAB_1 Performing Organization Address City/State/[facility] Co de Phone Number [facility] [address] * (ABNORMAL) Complete Blood Count-No Diff (2024 9:18 AM CDT) Pathologist [facility] WBC 7.8 3.5 - 10.5 x10(9)/L [...] - 450 x10(9)/L 2024 9:51 AM CDT [facility] Blood Venipuncture / Unknown 2024 9:18 AM CDT 2024 9:18 AM CDT Marianela Cardenas MD LAB_1 [facility] [address] [place] [address] * TSH (2024 9:18 AM CDT) TSH, Sensitive 1.73 0.30 - 4.50 uIU/mL 2024 3:43 PM CDT [facility] Blood Venipuncture / Unknown 2024 9:18 AM CDT 2024 9:18 AM CDT Marianela Cardenas MD LAB_1 Performing Organization Address [facility] Co de Phone Number [facility] [address] * LDL Cholesterol, Direct Measured (2024 9:18 AM CDT) LDL, Direct 80 <=130 mg/dL 2024 3:33 PM CDT [facility] Blood Venipuncture / Unknown 2024 9:18 AM CDT 2024 9:18 AM CDT Marianela Cardenas MD LAB_1 Performing Organization Address City/[facility] Co de Phone Number [facility] [address] documented in this encounter Visit Diagnoses Diagnosis Lipid screening Screening for lipoid disorders Screening for thyroid disorder Localized superficial swelling, mass, or lump Screening for diabetes mellitus documented in this encounter
--- OUTSIDE RECORDS SUMMARY | 2024-07-12 15:37 | XMS_ITS | Encounter Summary ---
Author Organization [employer] Address [address] [address] Care Team Providers Care Padding Gluer Name Role Phone No Primary/Referring, Phy Primary [...] on filedocumented in this encounter Care Teams Padding Gluer Relationship Specialty Start Date End Date No Primary/Referring, Phy PCP - General 04/21/24 documented as of this encounter
--- OUTSIDE RECORDS SUMMARY | 2024-07-12 15:37 | XMS_ITS | Encounter Summary ---
Author Organization [employer] [facility] Address [address] [place] [address] Care Team Providers Care Entertainment Usher Name Role Phone No Primary/Referring, Phy Primary Care Provider Unavailable Reason for Visit * Reason Comments CHEST PAIN COUGH Encounter Details Date Type Department Care Team ([facility] st Contact Info) Description 05/04/2024 Nurse Triage Careline [address] [place], [place] [address] No Primary/Referring, Phy CHEST PAIN; COUGH Social [...] coughing.) Protocols used: Coronavirus (COVID-19) Diagnosed or [id number] Plan: Go to ER/UCC now for evaluation. [...] on filedocumented in this encounter Care Teams Entertainment Usher Relationship Specialty Start Date End Date No Primary/Referring, Phy PCP - General 04/21/24 documented as of this encounter
--- OUTSIDE RECORDS SUMMARY | 2024-07-12 15:37 | XMS_ITS | Encounter Summary ---
Author Organization [employer] Address [address], [place] [address] Care Team Providers Care Director Geothermal Operations Name Role Phone Unavailable Primary Care Provider Unavailabl e Reason for Visit * Reason Comments ROUTINE HEALTH MAINTENANCE Encounter Details Date Type Department Care Team ([facility] st Contact Info) Description 2024 8:40 AM CDT Office Visit [facility] [address] [place], [place] [address] [place] [address] [place], [place] [address] Routine health maintenance (Primary Dx); Allergic rhinitis, [...] can you learn more? 1. Go to https://www.Stockleap/healthlibrary. 2. Enter P072 in the search box. Current as of: March 22, 2023 Content Version: 14.1 ?? [facility]. Care instructions adapted under license by your healthcare professional. If you have questions about a medical condition or this instruction, always ask your healthcare professional. [facility] disclaims any warranty or liability for your use of this information. Octoplus DNA is your genetic information, and it's unique to you. It can also hold the antony to discovering genetic health risks, creating personalized care and building a healthier community. [employer] is launching [employer], a study that looks at how DNA [...] family and generations to come.If you're a [employer] or [facility] patient over the age of 18, you can take part in the study. Registration is quick and easy, and there is no cost to you. Learn more about [employer] and register at [employer] Your privacy is our priority We take great care to keep your information safe and secure and will not share personal data beyondwhat you have consented to. * Attachments The following attachments cannot be sent through Care Everywhere. * Lymphadenitis (Burkinan) * Well Visit: 18 to 65 Years (Burkinan) documented in this encounter Progress Notes * [...] 5.3 <=5.6 % 2024 11:27 AM CDT [facility] Estimated Average Glucose (Calc) 105 < 117 mg/dL 2024 11:27 AM CDT [facility] Comment:Estimated average gl ucose (eAG) converts A1c into glucose units (mg/dL) and estimates average glucose over the past approximately 3 months. The eAG reference interval (<117 mg/dL) corresponds to an A1c of <5.7%. Blood Venipuncture / Unknown 2024 9:18 AM CDT 2024 9:18 AM CDT Marianela Cardenas MD LAB_1 [facility]AL LAB [address] * (ABNORMAL) Complete Blood Count-No Diff (2024 9:18 AM CDT) [facility] WBC 7.8 3.5 - 10.5 x10(9)/L [...] - 450 x10(9)/L 2024 9:51 AM CDT [facility] Blood Venipuncture / Unknown 2024 9:18 AM CDT 2024 9:18 AM CDT Marianela Cardenas MD LAB_1 Performing Organization Address [facility] [address]/[facility] Co de Phone Number [facility] [address] [place] [address] * TSH (2024 9:18 AM CDT) TSH, Sensitive 1.73 0.30 - 4.50 uIU/mL 2024 3:43 PM CDT [facility] Blood Venipuncture / Unknown 2024 9:18 AM CDT 2024 9:18 AM CDT Marianela Cardenas MD LAB_1 Performing Organization Address [facility] [address]/[facility] Co de Phone Number [facility] [address] * LDL Cholesterol, Direct Measured (2024 9:18 AM CDT) LDL, Direct 80 <=130 mg/dL 2024 3:33 PM CDT [facility] Blood Venipuncture / Unknown 2024 9:18 AM CDT 2024 9:18 AM CDT Marianela Cardenas MD LAB_1 Performing Organization Address [facility] [address]/[facility] Co de Phone Number [facility] [address] documented in this encounter Visit Diagnoses [...]
--- OUTSIDE RECORDS SUMMARY | 2024-07-12 15:37 | XMS_ITS | Encounter Summary ---
Author Organization [employer] Address [address] [place] [address] Care Team Providers Care Editor Greeting Card Name Role Phone No Primary/Referring, Phy Primary Care Provider Unavailable Reason for Referral * Procedure/Equipment (Routine) - Incomplete Specialty Diagnoses / Procedures Referred By Noemy de la paz Referred To Contact Diagnoses Cough, unspecified type Procedures XR Chest 2 Views Jessie Cain PA-C [id number] [place] [id number] Referral ID Status Reason Start Date Expiration Date V isits Requested Visits Authorized [id number] Incomplete 05/04/2024 08/03/2025 1 1 Reason for Visit * Reason Comments COUGH Pt says last night a t 2am she had intense chest pain and coughing up mucus. Encounter Details Date Type Department Care Team (Late st Contact Info) Description 05/04/2024 2:45 PM CDT Office Visit [facility] [id number] [place] [id number] Jessie Cain PA-C [id number] [place] [address] Asthma with acute exacerbation, unspecified asthma severity, [...] 89 05/04/2024 2:49 PM CDT Temperature 36.9 C (98.4 F) [...] sent through Care Everywhere. * Chest Pain (Wolof) * Asthma Attack (Wolof) documented in this encounter Progress Notes * [...] QT 346 ms QTc 404 ms P [place] 62 degrees R [place] 64 degrees T [place] 49 degrees XR Chest 2 Views Result Date: 05/04/2024 EXAM: XR CHEST 2 VIEWS LOCATION: [facility] DATE: 05/04/2024 INDICATION: [...] GHP QTc 404 ms MUSE GHP P [place] 62 degrees MUSE GHP R [place] 64 degrees MUSE GHP T [place] 49 degrees MUSE GHP 05/04/2024 3:29 PM CDT Narrative MUSE GHP - 05/06/2024 9:24 AM CDT Sinus rhythm Normal ECG No previous ECGs available Confirmed by Keren Wagner ([id number]) on 05/06/2024 9:24:00 AM Procedure Note Keren Wagner MD - 05/06/2024 Sinus rhythm Normal ECG No previous ECGs available Confirmed by Keren Wagner ([id number]) on 05/06/2024 9:24:00 AM Jessie Cain PA-C EKG Performing Organization Address [facility]/ZIP Co de Phone Number MUSE GHP [address] [place] [address] * XR Chest 2 Views (05/04/2024 3:09 PM CDT) Anatomical Region Laterality Modality Chest, Lung Computed Radiogr aphy 05/04/2024 3:09 PM CDT Narrative 05/04/2024 3:17 PM CDT EXAM: XR CHEST 2 VIEWS LOCATION: [facility] DATE: 05/04/2024 INDICATION: Cough. Chest pain. COMPARISON: None. IMPRESSION: Negative chest. Procedure Note Germán Pelaez MD - 05/04/2024 EXAM: XR CHEST 2 [facility]: 05/04/2024 INDICATION: Cough. Chest pain. COMPARISON: None. IMPRESSION: Negative chest. Jessie Cain PA-C RAD GD * Test (Urine) - Collect in Lab (05/04/2024 2:55 PM CDT) HCG, Urine Negative Negative 05/04/2024 3:00 PM CDT [facility] Urine Non-blood Collection / Unknown 05/04/2024 2:55 PM CDT 05/04/2024 2:55 PM CDT Jessie Cain PA-C LAB_1 [facility] [address] [place] [address], [facility] documented in this encounter Visit Diagnoses [...] mg documented in this encounter Care Teams Editor Greeting Card Relationship Specialty Start Date End Date No Primary/Referring, Phy PCP - General 04/21/24 documented as of this encounter
--- OUTSIDE RECORDS SUMMARY | 2024-07-12 15:37 | XMS_ITS | Referral Summary ---
Author Organization [facility] Address [address] [place] [address] Care Team Providers Care Home Specialist Name Role Phone Unavailable Primary Care Provider Unavailabl e Source Comments Patient records contain information from all sites at [facility]. For routine questions regarding patient records, call [phone] during business hours, M-F 8:00 AM - 5:00 PM Central Time. 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
--- OUTSIDE RECORDS SUMMARY | 2024-07-12 15:37 | XMS_ITS | Encounter Summary ---
Author Organization [facility] Address [address] [place] [address] Care Team Providers Care Spa Receptionist Name Role Phone No Primary/Referring, Phy Primary Care Provider Unavailable Reason for Visit * Reason Comments LAB RESULTS Encounter Details Date Type Department Care Team ([facility] st Contact Info) Description 04/27/2024 Telephone [facility] [address] [place], [place] [phone] [place] [address] [place], [place] [phone] LAB RESULTS Social History Tobacco Use Types [...] on filedocumented in this encounter Care Teams Spa Receptionist Relationship Specialty Start Date End Date No Primary/Referring, Phy PCP - General 04/21/24 documented as of this encounter
--- OUTSIDE RECORDS SUMMARY | 2024-07-12 15:37 | XMS_ITS | Encounter Summary ---
Author Organization [employer] Address [address] [place] [address] Care Team Providers Care Agricultural Produce Sorter Name Role Phone No Primary/Referring, Phy Primary Care Provider Unavailable Encounter Details Date Type Department Care Team (Late st Contact Info) Description 05/04/2024 3:40 PM CDT Lab Visit [facility] [address] [facility] [place], [place] [id number] Cough, unspecified type Social History Tobacco Use [...] Urine Negative Negative 05/04/2024 3:00 PM CDT [facility] Urine Non-blood Collection / Unknown 05/04/2024 2:55 PM CDT 05/04/2024 2:55 PM CDT Jessie Cain PA-C LAB_1 [facility] [address] documented in this encounter Visit Diagnoses Diagnosis Cough, unspecified type documented in this encounter Care Teams Agricultural Produce Sorter Relationship Specialty Start Date End Date No Primary/Referring, Phy PCP - General 04/21/24 documented as of this encounter
--- OUTSIDE RECORDS SUMMARY | 2024-07-12 15:37 | XMS_ITS | Encounter Summary ---
Author Organization [employer] Address [address] [place] [address] Care Team Providers Care Credit Cashier Name Role Phone No Primary/Referring, Phy Primary Care Provider Unavailable Reason for Visit * Reason Comments QUESTIONS, GENERAL Entered automaticall y based on patient selection in [employer]. Encounter Details Date Type Department Care Team (Late st Contact Info) Description 06/06/2024 3:10 PM CDT E-Visit [facility] [address] [place], [place] [address] [place] [address] [place], [place] [phone] Chief Comp: QUESTIONS, GENERAL Social History Tobacco [...] Clinician: Review order(s) and sign as appropriate Patient/manager career request: Medication question Specific Request: Pt is [...] on filedocumented in this encounter Care Teams Credit Cashier Relationship Specialty Start Date End Date No Primary/Referring, Phy PCP - General 04/21/24 documented as of this encounter
--- OUTSIDE RECORDS SUMMARY | 2024-07-12 15:37 | XMS_ITS | Referral Summary ---
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 Gender Identity Not on file Sexual Orientation Not on file Last Filed Vital Signs Vital Sign Reading Time Taken Comments Blood Pressure 120/90 07/07/2018 10:30 PM MOLDING ROOM SUPERVISOR Pulse 82 03/27/2011 1:27 PM CDT Temperature 37.3 C (99.1 F) 07/07/2018 8:39 PM MOLDING ROOM SUPERVISOR Respiratory Rate 12 07/07/2018 8:39 PM MOLDING ROOM SUPERVISOR Oxygen Saturation 98% 07/07/2018 10:54 PM MOLDING ROOM SUPERVISOR Inhaled Oxygen Concentration - - Weight 70.8 kg (156 lb) 07/07/2018 8:39 PM MOLDING ROOM SUPERVISOR Height 167.6 cm (5' 6) 07/07/2018 8:39 PM MOLDING ROOM SUPERVISOR Body Mass Index 25.18 07/07/2018 8:39 PM MOLDING ROOM SUPERVISOR Plan of Treatment Not on file Insurance [facility] [place] [address] [facility] CHOICE Care Teams Black Ash Burner Operator Relationship Specialty Start Date End Date Sallie Araiza Med PCP - General 07/07/18
--- OUTSIDE RECORDS SUMMARY | 2024-07-12 15:38 | XMS_ITS | Clinical Summary ---
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 [...] Name Administration Dates Next Due COVID-19 vaccine ([employer] NTmarinanow 30mcg/0.3mL) PF, MDV 03/05/2021,02/07/2021 DTaP 12/14/2002, 9,1998,08/23,1998 [...] 80 12/07/2023 8:51 AM CDT Temperature 36.7 C (98 F) 11/13/2023 1:14 PM CDT Respiratory Rate 12 [...] 08/03/2019, Additional history exists COVID-19 vaccine series ( season) 2024 03/05/2021, 02/07/2021 Influenza for age 9-49 04/17/2024 8, 05/06/2017, 06/05/2008, Additional history exists Pap test for age 21-65 04/10/2025 04/10/2022 Tetanus booster 10/17/2031 10/16/2021, 04/11/2010 Tdap Completed 10/16/2021, 04/11/2010 Pneumococcal series for age 6-64 Aged Out No longer eligible based on patient's age to complete this topic Procedures Procedure Name Priority Date/Time Associated Diagnosis Comments GARAGE HAND THIN PREP PAP SCREEN IMAGED Routine 04/10/2022 3:30 PM CDT from Last 3 Months or Most Recently Relevant to Health Maintenance Results * GARAGE HAND THIN PREP PAP SCREEN IMAGED (04/10/2022 3:30 PM CDT) Case Report Gynecologic Cytology Report Case: [id number] Authorizing Provider: Nina Maravilla PA-C Collected: 04/10/2022 1530 Ordering Location: [facility] Received: 04/14/2022 0830 First Screen: Sumi Ross Rescreen: Freda Dumont Specimen: GARAGE HAND ThinPrep Vial Screening, Cervical 04/29/2022 8:39 AM CDT [employer] LABORATORY-C ENTRAL LABORATORY INTERPRETATION/ RESULT NEGATIVE FOR INTRAEPITHELIAL LESION OR MALIGNANCY (NIL) (none) 04/29/2022 8:39 AM CDT [employer] LABORATORY-C ENTRAL LABORATORY IMEN ADEQUACY Satisfactory for evaluation No endocervical component seen 04/29/2022 8:39 AM CDT [employer] LABORATORY-C ENTRAL LABORATORY HPV REQUEST HPV if ASCUS 04/29/2022 8:39 AM CDT [facility] [employer] [facility] ENTRAL LABORATORY Date of LMP 02/06/2022 04/29/2022 8:39 AM CDT [facility] [employer] [facility] EN[facility] Last Pap Date 04/29/2022 8:39 AM CDT [facility] [employer] [facility] ENTRAL [facility]AT[facility] Comment:unk Last Pap Result First Pap/Unknown 8:39 AM CDT [facility] [employer] [facility] ENTRAL LABORATORY Abnormal Pap or [place] Bx in last 5 years No 04/29/2022 8:39 AM CDT [facility] [employer] [facility] ENTRAL LABORATORY Menstrual Status 04/29/2022 8:39 AM CDT [facility] [employer] [facility] [place] Bx Done Today No 04/29/2022 8:39 AM CDT [facility] [employer] [facility] ENTR[facility] Additional Information 04/29/2022 8:39 AM CDT [facility] [employer] [facility] ENTR[facility]AT[facility] Comment: Interpreted at [facility] [employer] [facility] - [address], [place] [address] Automated Review Successful 04/29/2022 8:39 AM CDT [facility] [employer] [facility] ENTRUT LABORATORY Comment:Specimen processed s uccessfully by automated notch grinder device, ThinPrep Imaging System, [employer] Note The pap test is a [...] and malignant lesions. 04/29/2022 8:39 AM CDT [facility] [employer] [facility] Other (Cervical) 04/10/2022 3:30 PM CDT 04/14/2022 8:30 AM CDT Nina Xenia Maravilla PA-C PATHOLOGY/CYTOLOGY [facility] [employer] [facility] [address] [place] [address], [place] from Last 3 Months or Most Recently Relevant to Health Maintenance Advance Directives * Full Code (Latest Code Status on File) Date Activated Date Inactivated Comments 12/15/2018 12:15 PM 12/15/2018 5:49 PM * Full Code Date Activated Date Inactivated Comments 10/23/2012 10:46 PM 10/24/2012 8:23 PM Care Teams Client Service And Consulting Manager Relationship Specialty Start Date End Date None . PCP - General 11/13/23 Allison Chakraborty MD [address] [place] [address] Dermatology Dermatology 10/08/17
--- OUTSIDE RECORDS SUMMARY | 2024-07-12 15:38 | XMS_ITS ---
Author Organization [facility] Address [address] [place] [address] Care Team Providers Care Sas Programmer Analyst Name Role Phone Unavailable Unavailable Unavailable Surgery Details Not on file Complications Check Surgery Details section. Procedure Estimated Blood Loss Check Surgery Details section. Procedure Findings Check Surgery Details section. Procedure Specimens Taken Check Surgery Details section.
--- NOTE | 2024-07-12 15:45 | CRLHL7_ITS ---
For Patients: As a result of the Century Cures Act, medical imaging exams and procedure reports are released immediately into your electronic medical record. You may view this report before your referring provider. If you have questions, please contact your health care provider. INDICATION: Follow-up subchorionic hemorrhage COMPARISON: 06/24/2024 TECHNIQUE: Real-time loza-scale imaging of the pelvis was performed. FINDINGS: Sonographic imaging demonstrates a single living intrauterine gestation. The embryo demonstrates a regular cardiac rate measuring 171 beats per minute. The embryo`s crown-rump length measurement of 4.0 cm corresponds to a gestational age of 10 weeks 6 days with a sonographic due date of 02/01/2025. There is a normal-appearing yolk sac. There are no gross abnormalities noted within the embryo at this early state of development. The gestational sac has a normal appearance. There is a 3.0 x 0.5 x 1.4 cm left-sided perigestational hemorrhage. The amount of fluid within the sac appears appropriate for gestational age. The cervix is closed. The myometrium appears normal. The ovaries are of normal size. Corpus luteal cyst left ovary. There are no suspicious fluid collections noted in the cul-de-sac. IMPRESSION: Single living intrauterine with sonographic gestational age 10 weeks 6 days and a sonographic due date of 02/01/2025. Left-sided subchorionic hemorrhage measures 3.0 x 0.5 x 1.4 cm. Dictated by Manuel Du MD @ 07/13/2024 12:13:42 PM (Electronically Signed)
== END 2024-07-12 15:35 | disposition home or self-care (01) ==
LOC: US 15:35
PROVIDERS: PCP Family Medicine; Visit Provider Registered Nurse
DX: O20.9 Hemorrhage in early pregnancy, unspecified (principal); Z3A.10 10 weeks gestation of pregnancy
CPT/HCPCS: 76801

== ENCOUNTER 2024-08-01 10:56 | Outpatient (CLI) | payer OTHER, SELFPAY | END 2024-08-01 10:57 | disposition home or self-care (01) | PROVIDERS: PCP Family Medicine; Visit Provider Advanced Practice Midwife | DX: Z34.82 Encounter for supervision of other normal pregnancy, second trimester (principal) | CPT/HCPCS: 81511 ==